=== PATIENT | female | born 1950 | race Caucasian/White ===

== ENCOUNTER 2016-10-12 22:53 | Emergency (ER) | payer BC ==
[~2016-10-12] VITALS: Ht 160 cm; Wt 86.0 kg
[~2016-10-12 22:53] MED LIST: ALLOPURINOL100 MG PO; ASPIRIN EC81 MG PO; BIOTIN MAXI10000 MCG PO; CALCIUM600 M1 PO; CIPROFLOXACN500 MG PO; D3 MAXIMUM5000 UNI1 PO; FLONASE NASAL50 MCG; GABAPENTIN100 MG PO; ISOSORB MONO30 MG PO; JANUVIA100 MG PO; LANTUS100 MG/ML SC; LISINOPRIL2.5 MG PO; METFORMIN500 MG PO; METOPROLOL50 M1 PO; MULTI FOR HER 50+ PO; MULTIVITAMI1 PO; NITROGLYCER0.4 MG SL; PLAVIX75 MG PO; PRAVASTATIN20 MG PO; PRENATAL1 TA1 PO; PRILOSEC20 MG PO; SPIRIVA IN; TORADOL PO; ZOFRAN4 MG/TAB PO
[2016-10-13 01:01] LABS: HEMOGLOBIN 10.9 g/dl (12.0-16.0); IMMATURE GRANULOCYTES 0.2 % (0.0-1.0); MEAN CELL VOLUME 88.5 fL CALC (80.0-100.0); MEAN CORPUSCULAR HGB 29.2 pG CALC (26.0-32.0); NEUT# 5.09 thou/uL (2.00-7.15); RED BLOOD COUNT 3.73 mill/uL (4.20-5.60); RED CELL DISTRI WIDTH 14.3 % (11.5-15.5)
[2016-10-13 01:21] LABS: URINE BILIRUBIN - DIPSTICK NEGATIVE (NEGATIVE); URINE BLOOD DIPSTICK MODERATE (NEGATIVE); URINE CLARITY SLIGHT CLOUDY; URINE COLOR YELLOW; URINE GLUCOSE - DIPSTICK 250 mg/dL (NEGATIVE); URINE KETONE NEGATIVE (NEGATIVE); URINE PROTEIN - DIPSTICK NEGATIVE (NEG-TRACE); URINE UROBILINOGEN - DIPSTICK 0.2 E.U./dL (0.2)
[2016-10-13 01:30] LABS: ALBUMIN 3.7 g/dL (3.2-5.0); BILIRUBIN, TOTAL 0.3 mg/dL (0.0-1.4); CALCIUM 9.2 mg/dL (8.4-10.2); CREATININE 1.2 mg/dL (0.5-1.0); TOTAL PROTEIN 6.6 g/dL (6.3-8.2)
[2016-10-13 01:32] LABS: URINE LEUK ESTERASE SMALL (NEGATIVE); URINE NITRITE - DIPSTICK POSITIVE (Negative)
[2016-10-13 01:42] LABS: URINE RBC 50-100 RBC/hpf (0-5)
[2016-10-13 01:43] LABS: POTASSIUM 5.3 mmol/l (3.5-5.1); URINE BACTERIA MODERATE hpf
[2016-10-13] MEDS ORDERED: ULTRAM50 M1 PO (03:21)
[2016-10-13] MEDS ORDERED: CIPROFLOXACN500 MG PO (03:21)
[2016-10-13 03:44] VITALS: BP 154/70
== END 2016-10-13 03:40 | disposition home or self-care (01) | DRG 694 ==
LOC: ED 22:53
PROVIDERS: Emergency Medicine
DX: N20.0 Calculus of kidney (principal); I10 Essential (primary) hypertension; N39.0 Urinary tract infection, site not specified; I25.10 Atherosclerotic heart disease of native coronary artery without angina pectoris; E11.9 Type 2 diabetes mellitus without complications; M81.0 Age-related osteoporosis without current pathological fracture; Z98.84 Bariatric surgery status

== ENCOUNTER 2016-10-28 22:24 | Observation (INO) | payer BC ==
[~2016-10-28] VITALS: Ht 160 cm; Wt 84.0 kg
[~2016-10-28 22:24] MED LIST changes: +ULTRAM50 M1 PO
[2016-10-28 23:53] LABS: HEMATOCRIT 33.6 % (37.0-47.0); HEMOGLOBIN 10.8 g/dl (12.0-16.0); IMMATURE GRANULOCYTES 0.3 % (0.0-1.0); MEAN CELL VOLUME 90.1 fL CALC (80.0-100.0); MEAN CORPUSCULAR HGB CONC 32.1 g/L CALC (32.0-36.0); NEUT# 4.7 thou/uL (2.00-7.15); RED BLOOD COUNT 3.73 mill/uL (4.20-5.60)
[2016-10-28 23:56] LABS: URINE BILIRUBIN - DIPSTICK NEGATIVE (NEGATIVE); URINE BLOOD DIPSTICK NEGATIVE (NEGATIVE); URINE CLARITY CLEAR; URINE COLOR YELLOW; URINE GLUCOSE - DIPSTICK 500 mg/dL (NEGATIVE); URINE KETONE NEGATIVE (NEGATIVE); URINE NITRITE - DIPSTICK NEGATIVE (Negative); URINE PH 5.5 (4.5-8.0); URINE PROTEIN - DIPSTICK NEGATIVE (NEG-TRACE); URINE SPECIFIC GRAVITY 1.015; URINE UROBILINOGEN - DIPSTICK 0.2 E.U./dL (0.2)
[2016-10-28 23:58] LABS: URINE LEUK ESTERASE SMALL (NEGATIVE)
[2016-10-29] LABS: BARBITURATES NEGATIVE (NEGATIVE); COCAINE NEGATIVE (NEGATIVE); METHADONE NEGATIVE (NEGATIVE); OXCYCODONE NEGATIVE (NEGATIVE); TETRAHYDROCANNABIONOL NEGATIVE (NEGATIVE); TRICYLIC ANTIDEPRESSANTS NEGATIVE (NEGATIVE)
[2016-10-29 00:07] LABS: ALBUMIN 3.6 g/dL (3.2-5.0); ALKALINE PHOSPHATASE 85 u/l (38-126); ANION GAP 16 (6-22 (CALC)); BILIRUBIN, TOTAL 0.3 mg/dL (0.0-1.4); BUN 32 mg/dL (8-23); BUN/CREATININE RATIO 27 (12-20 (CALC)); CALCIUM 9.7 mg/dL (8.4-10.2); CARBON DIOXIDE 25 mmol/l (22-30); CHLORIDE 104 mmol/l (95-108); CREATININE 1.2 mg/dL (0.5-1.0); GFR 45 ML/MIN (>=60 (CALC)); GFR FOR AFR.AMER. 55 ML/MIN (>=60 (CALC)); GLUCOSE 169 mg/dL (82-115); POTASSIUM 4.7 mmol/l (3.5-5.1); SGOT/AST 25 u/l (9-36); SGPT/ALT 39 u/l (11-66); SODIUM 140 mmol/l (137-146); TOTAL PROTEIN 6.4 g/dL (6.3-8.2)
[2016-10-29 00:09] LABS: INTERNATIONAL NORMALIZED RATIO 0.9 RATIO (0.7-1.3); URINE BACTERIA RARE hpf; URINE RBC 0-2 RBC/hpf (0-5); URINE SQUAMOUS EPITHELIAL CELL FEW EPI/hpf (0-FEW)
[2016-10-29 00:17] LABS: MYOGLOBIN 20 ng/mL (0 - 62)
[2016-10-29 04:40] VITALS: BP 151/69
[2016-10-29 10:58] VITALS: BP 114/52
[2016-10-29 16:21] VITALS: BP 115/69
[2016-10-29] MEDS ORDERED: LOPRESSOR 550 MG/TAB PO (16:49)
== END 2016-10-29 18:30 | disposition home or self-care (01) | DRG 313 ==
LOC: ENPENDDIS → ED 22:24 → ED-I 22:53 → ED 10-29 02:23 → MS2 10-29 02:24
PROVIDERS: Emergency Medicine; ADMIT Internal Medicine; ATTEND Internal Medicine
DX: R07.89 Other chest pain (principal); I25.10 Atherosclerotic heart disease of native coronary artery without angina pectoris; I11.9 Hypertensive heart disease without heart failure; E11.65 Type 2 diabetes mellitus with hyperglycemia; R53.83 Other fatigue; R55 Syncope and collapse; E78.5 Hyperlipidemia, unspecified; M19.90 Unspecified osteoarthritis, unspecified site; D64.9 Anemia, unspecified; M10.9 Gout, unspecified; Z85.3 Personal history of malignant neoplasm of breast; Z85.828 Personal history of other malignant neoplasm of skin; Z98.84 Bariatric surgery status; Z87.891 Personal history of nicotine dependence; Z95.5 Presence of coronary angioplasty implant and graft; Z79.4 Long term (current) use of insulin
CPT/HCPCS: G0378; J1335

== ENCOUNTER 2017-05-22 17:35 | Observation (INO) | payer BC ==
[~2017-05-22] VITALS: Ht 160 cm; Wt 89.8 kg
[~2017-05-22 17:35] MED LIST changes: +LOPRESSOR 550 MG/TAB PO
--- NOTE | 2017-05-22 17:35 | NUR ---
PT TO ROOM FOR TREATMENT
[2017-05-22] MEDS ORDERED: VICTOZA18 MG/3 ML SC (18:13)
[2017-05-22 18:16] LABS: HEMATOCRIT 30.1 % (37.0-47.0); HEMOGLOBIN 9.6 g/dl (12.0-16.0); IMMATURE GRANULOCYTES 0.3 % (0.0-1.0); MEAN CELL VOLUME 94.1 fL CALC (80.0-100.0); MEAN CORPUSCULAR HGB CONC 31.9 g/L CALC (32.0-36.0); NEUT# 5.08 thou/uL (2.00-7.15); RED BLOOD COUNT 3.2 mill/uL (4.20-5.60)
[2017-05-22] MEDS ORDERED: VITAMIN D-32000 UNI1 PO (18:17)
[2017-05-22] MEDS ORDERED: VITAMIN B-12500 MCG PO (18:18)
[2017-05-22] MEDS ORDERED: LEXIVA700 MG PO (18:20)
[2017-05-22] MEDS ORDERED: LEVOTHYROXIN50 MCG PO (18:23)
[2017-05-22 18:41] LABS: ALBUMIN 3.2 g/dL (3.2-5.0); ALKALINE PHOSPHATASE 69 u/l (38-126); ANION GAP 12 (6-22 (CALC)); BILIRUBIN, TOTAL 0.4 mg/dL (0.0-1.4); BUN 28 mg/dL (8-23); BUN/CREATININE RATIO 23 (12-20 (CALC)); CALCIUM 8.7 mg/dL (8.4-10.2); CARBON DIOXIDE 23 mmol/l (22-30); CHLORIDE 109 mmol/l (95-108); CREATININE 1.2 mg/dL (0.5-1.0); GFR 45 ML/MIN (>=60 (CALC)); GFR FOR AFR.AMER. 55 ML/MIN (>=60 (CALC)); GLUCOSE 245 mg/dL (82-115); POTASSIUM 4.5 mmol/l (3.5-5.1); SGOT/AST 38 u/l (9-36); SGPT/ALT 54 u/l (11-66); SODIUM 140 mmol/l (137-146); TOTAL PROTEIN 5.6 g/dL (6.3-8.2)
[2017-05-22 18:53] LABS: MYOGLOBIN 20 ng/mL (0 - 62)
--- NOTE | 2017-05-22 19:39 | NUR ---
PT AND AWARE OF PENDING ADMISSION. NO FURTHER EPISODES OF CHEST PAIN. PT UPDATED ON KNOWN RESULTS.
--- NOTE | 2017-05-22 19:45 | NUR ---
PT TAKEN TO ROOM 291 WITHOUT INCIDENT, REPORT WAS TO KENNY TAO.
[2017-05-22 19:55] VITALS: BP 134/72
--- NOTE | 2017-05-22 19:55 | NUR ---
PT TO ROOM 291 VIA STRETCHER ACCOMPANIED BY ER STAFF.
--- NOTE | 2017-05-22 20:15 | NUR ---
PT IS ALERT AND ORIENTED X3. PERRLA. LUNGS ARE CLEAR. RESP ARE EVEN AND UNLABORED. TELE IN PLACE. HR REGULAR. PULSES PALPABLE THROUGHOUT. NO EDEMA NOTED. PT DENIES CHEST PAIN AT THIS TIME. BS ACTIVE. PT REPORTS A NORMAL BM AT HOME EARLIER TODAY. ACCU CHECK 202. #22 RAC. SALINE LOCKED. NO REDNESS OR EDEMA NOTED AT SITE. WILL CONTINUE TO MONITOR
[2017-05-22 23:56] VITALS: BP 120/71
--- NOTE | 2017-05-23 00:38 | NUR ---
PT RESTING IN BED WITH EYES CLOSED. RESP ARE EVEN AND UNLABORED. NO CHANGE IN PT STATUS. WILL CONTINUE TO MONITOR
--- NOTE | 2017-05-23 01:03 | NUR ---
PT WITH COMPLAINTS OF A HEADACHE. NITRO PATCH REMOVED. WILL CONTINUE TO MONITOR
--- NOTE | 2017-05-23 04:18 | NUR ---
PT RESTING IN BED WITH EYES CLOSED. RESP ARE EVEN AND UNLATED. DENIES CP AT THIS TIME. WILL CONTINUE TO MONITOR
[2017-05-23 05:33] VITALS: BP 128/76
--- NOTE | 2017-05-23 07:35 | NUR ---
REPORT RECEIVED FROM NIGHT NURSE, PT.UPRIGHT IN BED W/LIGHTS AND TV ON. AT BS. DENIES ANY PAIN, DISCOMFORT OR DISTRES AT THIS TIME. CALL LIGHT W/IN REACH AND PT.HAS BEEN ENCOURAGED TO CALL IF ANY NEEDS ARISE
[2017-05-23 08:54] VITALS: BP 153/80
[2017-05-23 09:16] LABS: CHOLESTEROL HDL RATIO 2.4 (<4.4 (CALC)); MAGNESIUM 1.5 mg/dL (1.6-2.3)
[2017-05-23 11:00] VITALS: BP 144/80
[2017-05-23 15:57] VITALS: BP 110/64
--- NOTE | 2017-05-23 16:21 | NUR ---
PT.DISCHARGED OFF THE UNIT IN GOOD CONDITION, IV REMOVED INTACT/SITE APPEARS HEALTHY, GROCERY STOCK CLERK REMOVED. PT.SELF AMBULATED ACCOMPANIED BY .
== END 2017-05-23 16:21 | disposition home or self-care (01) | DRG 303 ==
LOC: ED 17:35 → ED-I 19:15 → ED 19:41 → MS2 19:42
PROVIDERS: Emergency Medicine; Nurse Practitioner Family; ADMIT Internal Medicine; ATTEND Internal Medicine
DX: I25.118 Atherosclerotic heart disease of native coronary artery with other forms of angina pectoris (principal); E11.65 Type 2 diabetes mellitus with hyperglycemia; I10 Essential (primary) hypertension; E78.5 Hyperlipidemia, unspecified; E83.42 Hypomagnesemia; M19.90 Unspecified osteoarthritis, unspecified site; Z95.5 Presence of coronary angioplasty implant and graft; Z98.84 Bariatric surgery status; Z85.3 Personal history of malignant neoplasm of breast; Z90.12 Acquired absence of left breast and nipple; Z87.442 Personal history of urinary calculi; Z87.891 Personal history of nicotine dependence; Z79.4 Long term (current) use of insulin
CPT/HCPCS: G0378

== ENCOUNTER 2017-06-11 00:30 | Inpatient (IN) | payer MEDICARE, OTHER ==
[~2017-06-11] VITALS: Ht 160 cm; Wt 86.0 kg
[~2017-06-11 00:30] MED LIST changes: -LANTUS100 MG/ML SC; +LANTUS100 UNIT/M SC; +LEVOTHYROXIN50 MCG PO; +LEXIVA700 MG PO; +VICTOZA18 MG/3 ML SC; +VITAMIN B-12500 MCG PO; +VITAMIN D-32000 UNI1 PO
[2017-06-11] MEDS ORDERED: VICTOZA18 MG/3 ML SC (00:54)
[2017-06-11] MEDS ORDERED: FOSAMAX PLUS PO (01:20)
[2017-06-11 01:22] LABS: HEMATOCRIT 32.9 % (37.0-47.0); HEMOGLOBIN 10.5 g/dl (12.0-16.0); IMMATURE GRANULOCYTES 0.2 % (0.0-1.0); MEAN CELL VOLUME 92.7 fL CALC (80.0-100.0); MEAN CORPUSCULAR HGB 29.6 pG CALC (26.0-32.0); MEAN CORPUSCULAR HGB CONC 31.9 g/L CALC (32.0-36.0); NEUT# 4.99 thou/uL (2.00-7.15); RED BLOOD COUNT 3.55 mill/uL (4.20-5.60); RED CELL DISTRI WIDTH 14.6 % (11.5-15.5)
[2017-06-11 01:35] LABS: ALBUMIN 3.7 g/dL (3.2-5.0); ALKALINE PHOSPHATASE 75 u/l (38-126); ANION GAP 15 (6-22 (CALC)); BILIRUBIN, TOTAL 0.3 mg/dL (0.0-1.4); BUN 19 mg/dL (8-23); BUN/CREATININE RATIO 17 (12-20 (CALC)); CALCIUM 9.5 mg/dL (8.4-10.2); CARBON DIOXIDE 23 mmol/l (22-30); CHLORIDE 111 mmol/l (95-108); CREATININE 1.2 mg/dL (0.5-1.0); GFR 45 ML/MIN (>=60 (CALC)); GFR FOR AFR.AMER. 55 ML/MIN (>=60 (CALC)); GLUCOSE 129 mg/dL (82-115); POTASSIUM 5.1 mmol/l (3.5-5.1); SGOT/AST 31 u/l (9-36); SGPT/ALT 47 u/l (11-66); SODIUM 144 mmol/l (137-146); TOTAL PROTEIN 6.1 g/dL (6.3-8.2)
[2017-06-11 01:36] LABS: ACT PARTIAL THROMBO TIME 24.3 SECONDS (20.0-32.5); INTERNATIONAL NORMALIZED RATIO 0.9 RATIO (0.7-1.3)
[2017-06-11 01:47] LABS: MYOGLOBIN 23 ng/mL (0 - 62)
[2017-06-11 03:00] VITALS: BP 156/86
[2017-06-11 07:38] VITALS: BP 147/74
[2017-06-11 11:27] VITALS: BP 105/60
[2017-06-11 15:09] VITALS: BP 141/87
[2017-06-11 19:10] VITALS: BP 126/74
[2017-06-11 23:39] VITALS: BP 146/74
== END 2017-06-12 00:30 | disposition short-term general hospital (02) | DRG 303 ==
LOC: ED 00:30 → ED-I 02:00 → ED 02:16 → MS2 02:17
PROVIDERS: Emergency Medicine; ADMIT Internal Medicine; ATTEND Internal Medicine
DX: I25.110 Atherosclerotic heart disease of native coronary artery with unstable angina pectoris (principal); E11.22 Type 2 diabetes mellitus with diabetic chronic kidney disease; I13.10 Hypertensive heart and chronic kidney disease without heart failure, with stage 1 through stage 4 chronic kidney disease, or unspecified chronic kidney disease; E11.65 Type 2 diabetes mellitus with hyperglycemia; N18.3 Chronic kidney disease, stage 3 (moderate); E78.5 Hyperlipidemia, unspecified; M10.9 Gout, unspecified; G47.33 Obstructive sleep apnea (adult) (pediatric); H91.90 Unspecified hearing loss, unspecified ear; M15.9 Polyosteoarthritis, unspecified; D63.1 Anemia in chronic kidney disease; E03.9 Hypothyroidism, unspecified; Z79.84 Long term (current) use of oral hypoglycemic drugs; Z85.3 Personal history of malignant neoplasm of breast; Z98.84 Bariatric surgery status; Z95.5 Presence of coronary angioplasty implant and graft; Z68.33 Body mass index [BMI] 33.0-33.9, adult; Z87.891 Personal history of nicotine dependence

== ENCOUNTER 2017-09-22 17:01 | Inpatient (IN) | payer MEDICARE, OTHER ==
[~2017-09-22] VITALS: Ht 160 cm; Wt 88.0 kg
[~2017-09-22 17:01] MED LIST changes: +CALCI PO; +CINNAMON500 M1 PO; +CIPROFLOXACIN250 MG PO; +FOSAMAX PLUS PO; +MAG PO; +MIRALAX3350 NF PO; +PROTONIX40 M2 PO; +[UNRECOGNIZED DRUG - OTHER] PO
[2017-09-22 17:54] LABS: HEMATOCRIT 35.1 % (37.0-47.0); HEMOGLOBIN 11.9 g/dl (12.0-16.0); IMMATURE GRANULOCYTES 0.4 % (0.0-1.0); MEAN CELL VOLUME 90.7 fL CALC (80.0-100.0); MEAN CORPUSCULAR HGB 30.7 pG CALC (26.0-32.0); MEAN CORPUSCULAR HGB CONC 33.9 g/L CALC (32.0-36.0); NEUT# 7.03 thou/uL (2.00-7.15); RED BLOOD COUNT 3.87 mill/uL (4.20-5.60); RED CELL DISTRI WIDTH 14.3 % (11.5-15.5)
[2017-09-22 17:56] LABS: URINE BILIRUBIN - DIPSTICK NEGATIVE (NEGATIVE); URINE BLOOD DIPSTICK NEGATIVE (NEGATIVE); URINE CLARITY CLEAR; URINE COLOR YELLOW; URINE GLUCOSE - DIPSTICK >=1000 mg/dL (NEGATIVE); URINE KETONE NEGATIVE (NEGATIVE); URINE LEUK ESTERASE NEGATIVE (NEGATIVE); URINE NITRITE - DIPSTICK NEGATIVE (Negative); URINE PROTEIN - DIPSTICK NEGATIVE (NEG-TRACE); URINE UROBILINOGEN - DIPSTICK 0.2 E.U./dL (0.2)
[2017-09-22 18:06] LABS: ALBUMIN 3.4 g/dL (3.2-5.0); BILIRUBIN, TOTAL 0.7 mg/dL (0.0-1.4); CREATININE 1.4 mg/dL (0.5-1.0); TOTAL PROTEIN 5.8 g/dL (6.3-8.2)
[2017-09-22 18:15] LABS: POTASSIUM 5.8 mmol/l (3.5-5.1)
[2017-09-22 19:38] VITALS: BP 144/77
[2017-09-22 22:03] LABS: CALCULATED LDLCHOLESTEROL 72 mg/dL (62-129 (CALC)); CHOLESTEROL HDL RATIO 2.3 (<4.4 (CALC)); HDL CHOLESTEROL 77 mg/dL (>=40); TOTAL CHOLESTEROL 176 mg/dl (0-199); TOTAL TRIGLYCERIDES 139 mg/dl (30-149); VLDL CHOLESTROL 28 mg/dl (1-41 (CALC))
[2017-09-22 22:33] LABS: TSH, 3RD GENERATION < 0.02 uIU/mL (0.47 - 4.68)
[2017-09-23 00:51] VITALS: BP 114/61
[2017-09-23 04:32] VITALS: BP 101/52
[2017-09-23 04:48] LABS: HEMATOCRIT 31.5 % (37.0-47.0); HEMOGLOBIN 10.3 g/dl (12.0-16.0); IMMATURE GRANULOCYTES 0.3 % (0.0-1.0); MEAN CELL VOLUME 92.1 fL CALC (80.0-100.0); MEAN CORPUSCULAR HGB 30.1 pG CALC (26.0-32.0); MEAN CORPUSCULAR HGB CONC 32.7 g/L CALC (32.0-36.0); NEUT# 4.5 thou/uL (2.00-7.15); RED BLOOD COUNT 3.42 mill/uL (4.20-5.60); RED CELL DISTRI WIDTH 14.5 % (11.5-15.5)
[2017-09-23 06:21] LABS: BILIRUBIN, TOTAL 0.4 mg/dL (0.0-1.4); CREATININE 1.4 mg/dL (0.5-1.0); TOTAL PROTEIN 4.8 g/dL (6.3-8.2)
[2017-09-23 06:30] LABS: ALBUMIN 2.7 g/dL (3.2-5.0); POTASSIUM 4.4 mmol/l (3.5-5.1)
[2017-09-23 08:12] VITALS: BP 99/58
[2017-09-23 10:00] VITALS: BP 110/62
[2017-09-23 15:15] VITALS: BP 95/55
[2017-09-23 19:15] VITALS: BP 108/60
[2017-09-24 05:05] LABS: HEMATOCRIT 30.7 % (37.0-47.0); IMMATURE GRANULOCYTES 0.5 % (0.0-1.0); MEAN CELL VOLUME 92.2 fL CALC (80.0-100.0); MEAN CORPUSCULAR HGB CONC 32.6 g/L CALC (32.0-36.0); NEUT# 3.68 thou/uL (2.00-7.15); RED BLOOD COUNT 3.33 mill/uL (4.20-5.60); RED CELL DISTRI WIDTH 14.6 % (11.5-15.5)
[2017-09-24 05:11] LABS: ALBUMIN 2.7 g/dL (3.2-5.0); BILIRUBIN, TOTAL 0.4 mg/dL (0.0-1.4); CREATININE 1.2 mg/dL (0.5-1.0); POTASSIUM 4.4 mmol/l (3.5-5.1); TOTAL PROTEIN 4.9 g/dL (6.3-8.2)
[2017-09-24 05:16] VITALS: BP 123/71
[2017-09-24 07:39] VITALS: BP 112/48
[2017-09-24 08:45] VITALS: BP 112/48
== END 2017-09-24 09:39 | disposition home or self-care (01) | DRG 639 ==
LOC: ED 17:01 → ED-I 18:12 → ED 18:23 → MS2 18:24
PROVIDERS: Emergency Medicine; ADMIT Internal Medicine Geriatric Medicine; ATTEND Internal Medicine Geriatric Medicine
DX: E11.65 Type 2 diabetes mellitus with hyperglycemia (principal); E11.22 Type 2 diabetes mellitus with diabetic chronic kidney disease; E03.9 Hypothyroidism, unspecified; I25.10 Atherosclerotic heart disease of native coronary artery without angina pectoris; B37.9 Candidiasis, unspecified; I12.9 Hypertensive chronic kidney disease with stage 1 through stage 4 chronic kidney disease, or unspecified chronic kidney disease; N18.9 Chronic kidney disease, unspecified; E78.5 Hyperlipidemia, unspecified; K27.9 Peptic ulcer, site unspecified, unspecified as acute or chronic, without hemorrhage or perforation; F41.9 Anxiety disorder, unspecified; M10.9 Gout, unspecified; L53.9 Erythematous condition, unspecified; Z95.1 Presence of aortocoronary bypass graft; Z87.440 Personal history of urinary (tract) infections

== ENCOUNTER 2017-12-08 08:49 | Emergency (ER) | payer MEDICARE, OTHER ==
[~2017-12-08] VITALS: Ht 160 cm; Wt 100.0 kg
[~2017-12-08 08:49] MED LIST changes: +METOPROL TAR25 M1 PO
[2017-12-08] MEDS ORDERED: NOVOLIN 70/30 SC ×2 (09:32→09:33)
[2017-12-08 09:35] LABS: HEMATOCRIT 35.6 % (37.0-47.0); HEMOGLOBIN 11.2 g/dl (12.0-16.0); IMMATURE GRANULOCYTES 0.4 % (0.0-1.0); MEAN CELL VOLUME 95.4 fL CALC (80.0-100.0); MEAN CORPUSCULAR HGB CONC 31.5 g/L CALC (32.0-36.0); NEUT# 8.55 thou/uL (2.00-7.15); RED BLOOD COUNT 3.73 mill/uL (4.20-5.60); RED CELL DISTRI WIDTH 13.8 % (11.5-15.5); URINE BILIRUBIN - DIPSTICK NEGATIVE (NEGATIVE); URINE BLOOD DIPSTICK MODERATE (NEGATIVE); URINE CLARITY CLOUDY; URINE COLOR YELLOW; URINE GLUCOSE - DIPSTICK NEGATIVE (NEGATIVE); URINE KETONE NEGATIVE (NEGATIVE); URINE LEUK ESTERASE TRACE (NEGATIVE); URINE NITRITE - DIPSTICK POSITIVE (Negative); URINE PH 5.5 (4.5-8.0); URINE PROTEIN - DIPSTICK 100 mg/dL (NEG-TRACE); URINE SPECIFIC GRAVITY 1.025; URINE UROBILINOGEN - DIPSTICK 0.2 E.U./dL (0.2)
[2017-12-08 09:36] LABS: URINE BACTERIA MODERATE hpf; URINE EPITHELIAL CELLS MODERATE EPI/hpf (0-FEW)
[2017-12-08] MEDS ORDERED: CALCIUM600 M1 PO (09:39)
[2017-12-08 09:46] LABS: ALBUMIN 3.6 g/dL (3.2-5.0); BILIRUBIN, TOTAL 0.6 mg/dL (0.0-1.4); CREATININE 1.2 mg/dL (0.5-1.0); POTASSIUM 4.8 mmol/l (3.5-5.1); TOTAL PROTEIN 6.3 g/dL (6.3-8.2)
[2017-12-08] MEDS ORDERED: ONDANSETRON4 MG PO (10:44)
[2017-12-08] MEDS ORDERED: HYDROCO/APAP1 TA9 PO (10:44)
[2017-12-08] MEDS ORDERED: CEPHALEXIN500 M1 PO (10:44)
[2017-12-08] MEDS ORDERED: TAMSULOSIN0.4 MG PO (10:44)
[2017-12-08] MEDS ORDERED: MOTRIN400 MG PO (10:44)
[2017-12-08 11:14] VITALS: BP 111/56
== END 2017-12-08 11:14 | disposition home or self-care (01) ==
LOC: ED 08:49
PROVIDERS: Family Medicine
DX: N20.1 Calculus of ureter (principal); M19.90 Unspecified osteoarthritis, unspecified site; I25.10 Atherosclerotic heart disease of native coronary artery without angina pectoris; I10 Essential (primary) hypertension; E11.9 Type 2 diabetes mellitus without complications; Z95.5 Presence of coronary angioplasty implant and graft; Z87.442 Personal history of urinary calculi; Z98.84 Bariatric surgery status; B96.89 Other specified bacterial agents as the cause of diseases classified elsewhere

== ENCOUNTER 2017-12-10 13:52 | Observation (INO) | payer MEDICARE, OTHER ==
[~2017-12-10] VITALS: Ht 160 cm; Wt 89.8 kg
[~2017-12-10 13:52] MED LIST changes: +CEPHALEXIN500 M1 PO; +HYDROCO/APAP1 TA9 PO; +MOTRIN400 MG PO; +NOVOLIN 70/30 SC; +ONDANSETRON4 MG PO; +TAMSULOSIN0.4 MG PO
[2017-12-10 14:10] VITALS: BP 111/62
[2017-12-10 14:24] LABS: HEMATOCRIT 34.8 % (37.0-47.0); HEMOGLOBIN 10.9 g/dl (12.0-16.0); IMMATURE GRANULOCYTES 0.2 % (0.0-1.0); MEAN CELL VOLUME 95.9 fL CALC (80.0-100.0); MEAN CORPUSCULAR HGB CONC 31.3 g/L CALC (32.0-36.0); NEUT# 6.04 thou/uL (2.00-7.15); RED BLOOD COUNT 3.63 mill/uL (4.20-5.60); RED CELL DISTRI WIDTH 13.7 % (11.5-15.5)
[2017-12-10 14:44] LABS: CREATININE 1.3 mg/dL (0.5-1.0)
[2017-12-10 15:29] VITALS: BP 94/52
--- NOTE | 2017-12-10 16:06 | NUR ---
PT ARRIVED ON UNIT VIA W/C @ 1410, SETTLED IN BED, ORIENTED TO ROOM AND CALL BUTLER, C/O MILD PAIN TO LEFT ABD. C/O OF BEING SHAKY AT THIS TIME (1611), BLOOD GLUCOSE MEASURED = 61, OJ AND SNACK GIVEN, WILL CONTINUE TO MONITOR, CALL BUTLER IN REACH.
[2017-12-10 18:10] LABS: URINE BILIRUBIN - DIPSTICK NEGATIVE (NEGATIVE); URINE BLOOD DIPSTICK NEGATIVE (NEGATIVE); URINE COLOR YELLOW; URINE GLUCOSE - DIPSTICK NEGATIVE (NEGATIVE); URINE KETONE NEGATIVE (NEGATIVE); URINE LEUK ESTERASE NEGATIVE (NEGATIVE); URINE NITRITE - DIPSTICK NEGATIVE (Negative); URINE PH 5.5 (4.5-8.0); URINE PROTEIN - DIPSTICK NEGATIVE (NEG-TRACE); URINE UROBILINOGEN - DIPSTICK 0.2 E.U./dL (0.2)
--- NOTE | 2017-12-10 18:31 | NUR ---
DRY HEAVING AT THIS TIME AND STATES SHE FEELS NAUSEATED, ANTIEMETIC MED GIVEN WILL CONTINUE TO MONITOR.
[2017-12-10 19:11] LABS: URINE CLARITY CLEAR
[2017-12-10 19:20] VITALS: BP 113/70
--- NOTE | 2017-12-10 20:08 | NUR ---
PT.ASSESSED AND POC DISCUSSED. STRAINER IN RESTROOM FOR URINE TO BE STRAINED. PT.REPORTS HAVING SMALL AMOUNTS OF DIAHRREA AT THIS TIME. SHE REPORTS OF STRESS INCONTINENCE OF URINE AND REQUESTED PADS FOR BOTH/PROVIDED. DENIES ANY NAUSEA OR PAIN AT THIS TIME. ABD. HYPO BOWEL SOUNDS SOFT NON-TENDER W/SLIGHT TENDERNESS IN LOWER RIGHT QUAD., LUNG SOUNDS ARE CLEAR, NEURO'S AND SKIN INTACT. NO EDEMA NOTED AT THIS TIME. CALL LIGHT AT BEDSIDE AND PT.ENCOURAGED TO CALL IF ANY NEEDS ARISE.
[2017-12-11] VITALS (10 sets, daily range): BP systolic 116–158; BP diastolic 65–86
--- NOTE | 2017-12-11 00:36 | NUR ---
PT.APPEARED TO BE SLEEPING WE ENTERED THE ROOM, V/S ASSESSED, PT.DENIES ANY NEEDS AT THIS TIME, CALL LIGHT IS W/IN REACH AND PT.ENCOURAGED TO CALL.
--- NOTE | 2017-12-11 02:52 | NUR ---
IV FLUIDS REPLENISHED, PT.IS IN BED WATCHING TV W/LIGHTS ON. NO S/S OF DISTRESS, PT.DENIES ANY NEEDS AT THIS TIME. PT.HAS BEEN NPO SINCE MIDNIGHT IN PREPERATION FOR OR TOMORROW. CALL LIGHT IS AT BEDSIDE AND PT.ENCOURAGED TO CALL IF ANY NEEDS ARISE.
--- NOTE | 2017-12-11 04:02 | NUR ---
PT.SLEEPING UPON ENTERING ROOM. V/S ASSESSED AND IV PUMP CLEARED. PT.DENIES ANY NEEDS AT THIS TIME, CALL LIGHT AT BEDSIDE. PT.ENCOURAGED TO CALL IF ANY NEEDS ARISE.
[2017-12-11 04:57] LABS: BILIRUBIN, TOTAL 0.4 mg/dL (0.0-1.4); CREATININE 1.1 mg/dL (0.5-1.0); POTASSIUM 4.9 mmol/l (3.5-5.1); TOTAL PROTEIN 5.1 g/dL (6.3-8.2)
[2017-12-11 05:03] LABS: ALBUMIN 2.7 g/dL (3.2-5.0)
[2017-12-11 05:30] LABS: HEMATOCRIT 31.1 % (37.0-47.0); HEMOGLOBIN 9.8 g/dl (12.0-16.0); IMMATURE GRANULOCYTES 0.4 % (0.0-1.0); MEAN CELL VOLUME 95.1 fL CALC (80.0-100.0); MEAN CORPUSCULAR HGB CONC 31.5 g/L CALC (32.0-36.0); NEUT# 3.69 thou/uL (2.00-7.15); RED BLOOD COUNT 3.27 mill/uL (4.20-5.60); RED CELL DISTRI WIDTH 13.8 % (11.5-15.5)
--- NOTE | 2017-12-11 07:00 | NUR ---
SHIFT CHANGE REPORT FROM SAYRA PT AWAKE ALERT AND ORIENTED RESTING IN BED, STATES HER PAIN IS MILD TO LLQ, TELE MONITOR IN PLACE, CALL BUTLER IN REACH.
[2017-12-11] MEDS ORDERED: PRENATAL1 TA1 PO (10:28)
[2017-12-11] MEDS ORDERED: SLOW-MAG PO (10:30)
[2017-12-11] MEDS ORDERED: METFORMIN500 M2 PO (10:33)
--- NOTE | 2017-12-11 11:21 | NUR ---
PT ALER AND ORIENTED, AWARE OF PLANNED PROCEDURE. PRANEETH FROM OR RECEIVED PT NOW, TRANSFERRED HER FROM BED TO STRETCHER AFTER INFORMING HER OF PLANS AND LEFT UNIT WITH PT TO OR.
--- NOTE | 2017-12-11 15:23 | NUR ---
PT RETURNED TO UNIT @ 1400, REDSIDE REPORT GIVEN TO JEAN AND FROM JEAN TO [place] @ 1407, PT SITTING ON COMMODE AT THAT TIME MOANING/GROANING IN PAIN, C/O BURNING PAIN @ 10 TO LOWER ABD. URINATED 100 CC BLOODY URINE, ASSISTED TO BED. STRING SECURED WITH SS TO RIGHT GROIN AREA, COMING FROM VAGINAL AREA OR STAFF EXPLAIN IT IS ATTATCHED TO RENAL STENT AND MUST STAY IN PLACE UNTIL SEEN BY UROLOGIST ON SATURDAY. PAIN CONCERN ADDRESSED, VITAL SIGNS BENING MEASURED, CALL BUTLER IN REACH.
--- NOTE | 2017-12-11 16:10 | NUR ---
ASSISTED PT TO BS @ 1610 AND BACK TO BED AFTER URINATING 100ML BLOODY URINE.
--- NOTE | 2017-12-11 16:48 | NUR ---
C/O CHEST PAIN AT THIS TIME, RESPIRATORY THERAPIST CALLED TO PERFORM EKG, WILL CONTINUE TO MONITOR, CALL BUTLER IN REACH.
--- NOTE | 2017-12-11 20:11 | NUR ---
PT RESTING IN BED WATCHING TV. PT ASSISTED TO BSC, PT VOIDED 200CC OF DARK DANISHA URINE. PT ASSISTED BACK TO BED. STRING FROM OR SECURED TO RIGHT GROIN AREA. RESP EVEN AND UNLABORED. TELE IN PALCE. LUNGS CLEAR, DIMINISHED IN BASES. BROUGHT INCENTIVE SPIROMETER TO PT, EDUCATED PT ON USE. PT RETURNED DEMONSTRATION. ABD SOFT, ACTIVE BOWEL SOUNDS. PEDAL PULSES PALPATED BILAT. IV RAC PATENT; NO REDNESS OR EDEMA NOTED. SAFETY PREACUTIONS REINFORCED. FREQUENT ROUNDS MADE. CALL LIGHT WITHIN REACH.
--- NOTE | 2017-12-12 | NUR ---
PT SLEEPING WITH EYES CLOSED. RESP EVEN AND UNLABORED. NO DISCOMFORT NOTED. TELE IN PLACE. IV PATENT; NO REDNESS OR EDEMA. CALL LIGHT WITHIN REACH.
[2017-12-12 00:05] VITALS: BP 112/66
--- NOTE | 2017-12-12 04:03 | NUR ---
RESP EVEN AND UNLABORED. PT SLEEPING WITH EYES CLOSED. ASSESSMENT UNCHANGED. TELE ON. IV PATENT; NO REDNESS OR EDEMA NOTED. CALL LIGHT WITHIN REACH.
[2017-12-12 04:05] VITALS: BP 123/68
--- NOTE | 2017-12-12 07:10 | NUR ---
REPORT RECEIVED FROM ROLAN ARZATE;PT RESTING IN SEMI FOWLERS POSITION;INTRODUCED SELF TO PT AND POC DISCUSSED;PT DENIES ANY CURRENT PAIN OR NEEDS;RESPIRATIONS APPEAR EVEN AND UNLABORED ON 02 @ 2L VIA NC;ENCOURAGED PT TO CALL FOR ASSISTANCE IF NEEDED;FALL PRECAUTIONS IN PLACE WITH CALL LIGHT IN REACH;WILL CONTINUE TO MONITOR
--- NOTE | 2017-12-12 08:10 | NUR ---
PT AMBULATING HALLWAY WITH A STEADY GAIT ACCOMPANIED BY
[2017-12-12 08:29] VITALS: BP 159/85
--- NOTE | 2017-12-12 08:30 | NUR ---
PT OOB RESTING IN RECLINER WITH SPOUSE AT BEDSIDE;VS OBTAINED AND ASSESSMENT COMPLETED;RESPIRATIONS EVEN AND UNLABORED ON RA,SHALLOW;ABDOMEN DISTENDED/SOFT ON PALPATION AND ACTIVE IN ALL 4 QUADRANTS;WEAK PEDAL PULSES;#20G TO RAC FLUSHED AND PATENT,SITE APPEARS HEALTHY;PT AWARE OF PENDING PICC LINE ORDER;TELE MONITOR IN PLACE;PT DENIES ANY CURRENT PAIN OR DISCOMFORTS;PO FLUIDS ENCOURAGED;CALL LIGHT IN REACH;WILL CONTINUE TO MONITOR
--- NOTE | 2017-12-12 09:36 | NUR ---
PT TRANSFERRED TO XRAY AT THIS TIME VIA WC ACCOMPANIED BY STAFF MEMBER
[2017-12-12 11:08] VITALS: BP 152/75
--- NOTE | 2017-12-12 11:50 | NUR ---
PT OOB RESTING IN RECLINER WITH SPOUSE AT BEDSIDE;PT VERY EAGER FOR DISCHARGE;RESPIRATIONS APPEAR EVEN AND UNLABORED ON RA;TELE MONITOR IN PLACE;PT DENIES ANY CURRENT PAIN OR NEEDS;ENCOURAGED TO CALL FOR ASSISTANCE IF NEEDED;CALL LIGHT IN REACH;WILL CONTINUE TO MONITOR
--- NOTE | 2017-12-12 12:11 | NUR ---
NOTIFIED OF PT STATUS,AWAITING D/C ORDERS
--- NOTE | 2017-12-12 13:01 | NUR ---
ORDERS FAXED TO PHARMACY AND IV THERPAY AT THIS TIME
--- NOTE | 2017-12-12 13:14 | NUR ---
DISCHARGE DISCUSSED WITH PT AND SPOUSE;ALL INFORMATION GIVEN AT THIS TIME AND QUESTIONS ANSWERED;PT TO GO TO [facility] 12/13/17 @0930;PT DENIES ANY OTHER NEEDS;IV SITE REMOVED WITH CATHETER INTACT;WHEELCHAIR PROVIDED FOR D/C
--- NOTE | 2017-12-12 13:16 | NUR ---
Discharge instructions given. Patient verbalizes understanding of same. Discharged in stable condition via Wheelchair to Home with spouse. All belongings sent with pt.
[2017-12-13] MEDS ORDERED: ONDANSETRON4 MG PO (17:42)
[2017-12-13] MEDS ORDERED: HYDROCO/APAP1 TA9 PO (17:42)
== END 2017-12-12 13:15 | disposition home or self-care (01) ==
LOC: MS2 13:52
PROVIDERS: ADMIT Internal Medicine Geriatric Medicine; ATTEND Internal Medicine Geriatric Medicine
PROC: 0TC78ZZ Extirpation of Matter from Left Ureter, Via Natural or Artificial Opening Endoscopic (ICD-10-PCS; principal; 2017-12-11)
PROC: 0T778DZ Dilation of Left Ureter with Intraluminal Device, Via Natural or Artificial Opening Endoscopic (ICD-10-PCS; 2017-12-11)
PROC: BT1FZZZ Fluoroscopy of Left Kidney, Ureter and Bladder (ICD-10-PCS; 2017-12-11)
PROC: 05HB33Z Insertion of Infusion Device into Right Basilic Vein, Percutaneous Approach (ICD-10-PCS; 2017-12-12)
PROC: B51MZZA Fluoroscopy of Right Upper Extremity Veins, Guidance (ICD-10-PCS; 2017-12-12)
DX: N13.6 Pyonephrosis (principal); N17.9 Acute kidney failure, unspecified; I12.9 Hypertensive chronic kidney disease with stage 1 through stage 4 chronic kidney disease, or unspecified chronic kidney disease; E11.22 Type 2 diabetes mellitus with diabetic chronic kidney disease; N18.9 Chronic kidney disease, unspecified; I25.119 Atherosclerotic heart disease of native coronary artery with unspecified angina pectoris; E11.65 Type 2 diabetes mellitus with hyperglycemia; E11.42 Type 2 diabetes mellitus with diabetic polyneuropathy; M19.90 Unspecified osteoarthritis, unspecified site; K27.9 Peptic ulcer, site unspecified, unspecified as acute or chronic, without hemorrhage or perforation; K21.9 Gastro-esophageal reflux disease without esophagitis; I48.91 Unspecified atrial fibrillation; E78.5 Hyperlipidemia, unspecified; F41.9 Anxiety disorder, unspecified; F32.9 Major depressive disorder, single episode, unspecified; G89.29 Other chronic pain; M54.5 Low back pain; E03.9 Hypothyroidism, unspecified; M10.9 Gout, unspecified; Z85.3 Personal history of malignant neoplasm of breast; Z79.4 Long term (current) use of insulin; Z95.1 Presence of aortocoronary bypass graft; Z87.442 Personal history of urinary calculi; Z95.5 Presence of coronary angioplasty implant and graft; Z98.84 Bariatric surgery status; Z87.891 Personal history of nicotine dependence; Z79.02 Long term (current) use of antithrombotics/antiplatelets
CPT/HCPCS: J0692; Q9967

== ENCOUNTER 2017-12-14 16:46 | Emergency (ER) | payer MEDICARE, OTHER ==
[~2017-12-14] VITALS: Ht 160 cm; Wt 89.0 kg
[~2017-12-14 16:46] MED LIST changes: +METFORMIN500 M2 PO; +SLOW-MAG PO
[2017-12-14] MEDS ORDERED: PHENERGAN25 MG/TAB PO (18:23)
[2017-12-14] MEDS ORDERED: DILAUDID2 MG PO (18:23)
[2017-12-14 18:46] VITALS: BP 151/70
== END 2017-12-14 18:46 | disposition home or self-care (01) ==
LOC: ED 16:46
DX: N20.2 Calculus of kidney with calculus of ureter (principal); Z87.442 Personal history of urinary calculi; R11.0 Nausea; I10 Essential (primary) hypertension; E11.9 Type 2 diabetes mellitus without complications; Z79.4 Long term (current) use of insulin; R10.9 Unspecified abdominal pain
CPT/HCPCS: J0692

== ENCOUNTER 2017-12-20 18:02 | Inpatient (IN) | payer MEDICARE, OTHER ==
[~2017-12-20] VITALS: Ht 160 cm; Wt 89.0 kg
[~2017-12-20 18:02] MED LIST changes: +DILAUDID2 MG PO; +PHENERGAN25 MG/TAB PO
--- NOTE | 2017-12-20 18:10 | NUR ---
PT TO ROOM FOR EXAM
--- NOTE | 2017-12-20 18:18 | NUR ---
PT TO BATHROOM FOR UA SAMPLE THEN CHANGE INTO GOWN. @BEDSIDE.
--- NOTE | 2017-12-20 18:41 | NUR ---
UNABLE TO DRAW BLOOD OUT OF PICC LINE IN RIGHT UPPER ARM. PT STATES THEY HAVENT BEEN ABLE TO DRAW OUT BLOOD x2 DAYS. PICC LINE FLUSHES W/OUT DIFFICULTY. PT ENCOURAGED NOT TO USE SWEATERS & BLANKETS WHILE SHE HAS A FEVER. PT C/O MILD CRAMPING TO LOWER ABD & FEVER x2 WEEKS. RECENT SURGERY FOR KIDNEY STONES, PT STATES FILTER STILL IN PLACE. BREATHING IS EVEN/UNLABORED. PULSES STRONG/EVEN. ABD SOFT/TENDER.
[2017-12-20 19:18] LABS: HEMATOCRIT 30.8 % (37.0-47.0); HEMOGLOBIN 9.8 g/dl (12.0-16.0); IMMATURE GRANULOCYTES 1.1 % (0.0-1.0); MEAN CELL VOLUME 92.5 fL CALC (80.0-100.0); MEAN CORPUSCULAR HGB 29.4 pG CALC (26.0-32.0); MEAN CORPUSCULAR HGB CONC 31.8 g/L CALC (32.0-36.0); NEUT# 6.39 thou/uL (2.00-7.15); RED BLOOD COUNT 3.33 mill/uL (4.20-5.60)
--- NOTE | 2017-12-20 19:19 | NUR ---
PT STATES SHE "FEELS BETTER AND IS READY TO GO HOME".
[2017-12-20 19:20] LABS: URINE BILIRUBIN - DIPSTICK NEGATIVE (NEGATIVE); URINE BLOOD DIPSTICK LARGE (NEGATIVE); URINE COLOR YELLOW; URINE GLUCOSE - DIPSTICK 100 mg/dL (NEGATIVE); URINE KETONE NEGATIVE (NEGATIVE); URINE LEUK ESTERASE TRACE (Negative); URINE NITRITE - DIPSTICK NEGATIVE (Negative); URINE PROTEIN - DIPSTICK 100 mg/dL (NEG-TRACE); URINE UROBILINOGEN - DIPSTICK 0.2 E.U./dL (0.2)
[2017-12-20 19:30] LABS: ALBUMIN 3.2 g/dL (3.2-5.0); BILIRUBIN, TOTAL 0.5 mg/dL (0.0-1.4); CREATININE 1.3 mg/dL (0.5-1.0); TOTAL PROTEIN 6.2 g/dL (6.3-8.2)
[2017-12-20 19:52] LABS: URINE CLARITY TURBID
[2017-12-20 19:58] VITALS: BP 124/55
[2017-12-20 20:00] LABS: URINE RBC TNTC RBC/hpf (0-5); URINE SQUAMOUS EPITHELIAL CELL FEW EPI/hpf (0-FEW)
[2017-12-20 20:04] LABS: POTASSIUM 5.2 mmol/l (3.5-5.1)
--- NOTE | 2017-12-20 20:16 | NUR ---
IVF STARTED PER MD ORDER.
--- NOTE | 2017-12-20 20:23 | NUR ---
RECVING AISLINN LORA. SHE IS ON THE OTHER LINE.
--- NOTE | 2017-12-20 20:36 | NUR ---
Admission Note Report Given to: JUSTINE Transported by: Wheelchair X Stretcher Transported with: X Nurse Transporter X Patent IV O2 X Breaker Boss
--- NOTE | 2017-12-20 20:45 | NUR ---
PTS GIVEN TEST RESULTS SO HE CAN COMMUNICATED WITH PTS RN DAUGHTER ABOUT PTS STATUS. WHILE PREPARING PT FOR TRANSFER, SPOKE OF HIS MISTRUST OF HOSPITALS; STATING HOW HIS DAD IN A HOSPITAL. STATES HE NEEDS TO BE ACTIVELY INVOLVED IN PTS CARE "DRS MAKE MISTAKES ALL THE TIME". PT ALSO LEARY OF HOSPITAL HER BROTHER HAD A KNEE SURGERY THEN 1 YEAR LATER DUE TO INFECTION. STATES PT HAS PICKED UP A LOT OF INFECTIONS WHILE HOSPITALIZED INCLUDING ESBL. CONTINUALLY SPOKE POORLY OF THIS HOSPITAL, AND HOSPITALS/DOCTORS IN GENERAL. PT TRANSFERED TO [facility] IN STABLE CONDITION BY STRETCHER ON TELE.
--- NOTE | 2017-12-20 20:56 | NUR ---
PT ARRIVED TO UNIT AT 2044 VIA STRETCHER WITH ER STAFF AND . AMBULATED TO BED INDEPENDENLTY; ALERT AND ORIENTED. IV FLUIDS INFUSING UPON ARRIVAL AND TELE ON. DENIES PAIN CURRENTLY. RESPIRATIONS EVEN AND UNLABOED ON ROOM AIR; LUNGS CLEAR. ORIENTED TO ROOM AND CALL LIGHT SYSTEM. PLAN OF CARE DISCUSSED. PT ENCOURAGED TO VERBALIZE CONCERNS. STATES UNDERSTANDING. SAFETY MEASURES IN PLACE. CALL LIGHT WITHIN REACH.
--- NOTE | 2017-12-20 21:00 | NUR ---
MAGGIE ADVISED NOT TO USE PICC LINE BC IT NEEDS TO BE ADVANCED DURING ADMISSION REPORT.
--- NOTE | 2017-12-20 23:33 | NUR ---
PT ASLEEP AT THIS TIME WITH NO SIGNS OF DISTRESS. REPSIRATIONS EVEN AND UNLABORED ON ROOM AIR. IV FLUIDS INFUSING WITHOUT DIFFICULTY; IV SITE APPEARS HEALTHY. PT INDEPENDENT TO BATHROOM, HAS LEAKY URINE R/T CURRENT STENT IN PLACE. SAFETY MEASURES IN PLACE. CALL LIGHT WITHIN REACH.
[2017-12-21] VITALS: BP 144/81
--- NOTE | 2017-12-21 04:16 | NUR ---
PT ASLEEP AT THIS TIME WITH NO SIGNS OF DISTRESS. RESPIRATIONS EVEN AND UNLABROED ON ROOM AIR. ONE EPISODE OF INCONTINENCE IN THE BED THIS SHIFT. NO ACUTE CHANGES IN CONDITION THROUGHOUT THE NIGHT. SAFETY MEASURES IN PLACE. CALL LIGHT WITHIN REACH.
[2017-12-21 05:00] VITALS: BP 145/81
[2017-12-21 05:56] LABS: HEMATOCRIT 28.1 % (37.0-47.0); IMMATURE GRANULOCYTES 0.8 % (0.0-1.0); MEAN CELL VOLUME 92.1 fL CALC (80.0-100.0); MEAN CORPUSCULAR HGB 29.5 pG CALC (26.0-32.0); NEUT# 5.39 thou/uL (2.00-7.15); RED BLOOD COUNT 3.05 mill/uL (4.20-5.60); RED CELL DISTRI WIDTH 13.7 % (11.5-15.5)
[2017-12-21 06:04] LABS: CREATININE 1.1 mg/dL (0.5-1.0); POTASSIUM 4.5 mmol/l (3.5-5.1)
--- NOTE | 2017-12-21 07:05 | NUR ---
BEDSIDE REPORT RECEIVED BY BRENTON. PT IS RESTING IN BED WITH NO S/S OF DISTRESS NOTED. PT DENIES NEEDS AT THIS TIME. CALL LIGHT IN REACH.
[2017-12-21 07:42] VITALS: BP 163/82
--- NOTE | 2017-12-21 07:58 | NUR ---
PT WENT TO X-RAY VIA WHEELCHAIR BY AJ MURRIETA.
--- NOTE | 2017-12-21 08:07 | NUR ---
PT IS SITTING IN RECLINER. ASSESSMENT DONE TELE IN PLACE . RESPS EVEN AND UNLABORED. NS 75ML/HR INFUSING WELL. PT DENIES PAIN AT THIS TIME. SAFETY PRECAUTION REINFORCED AND CALL LIGHT IN REACH.
--- NOTE | 2017-12-21 09:10 | NUR ---
DR. TSE AT BEDSIDE TO ASSESS PT.
[2017-12-21 11:18] VITALS: BP 115/68
--- NOTE | 2017-12-21 12:00 | NUR ---
PT IS SITTING IN CHAIR EATING HER LUNCH WITH NO S/S OF DISTRESS NOTED. PT DENIES NEEDS AND IN ROOM. CALL LIGHT IN REACH.
[2017-12-21 15:03] VITALS: BP 122/72
--- NOTE | 2017-12-21 16:02 | NUR ---
PT IS RESTING ON HER RIGHT SIDE. PT STATED THAT SHE IS COLD CHECKED PT TEMP. 99.9. PT DENIES PAIN OR NEEDS AT THIS TIME. WILL CONTINUE TO MONITOR. CALL LIGHT IN REACH.
--- NOTE | 2017-12-21 17:09 | NUR ---
PT TEMP IS 100.3 MEDICATED PT WITH TYLENOL SEE EMAR. PROVIDE PO FLUIDS AND MADE ROOM COOL. PT DENIES ANY OTHER NEEDS AT THIS TIME. CALL LIGHT IN REACH.
--- NOTE | 2017-12-21 18:45 | NUR ---
RECEIVED CHANGE OF SHIFT REPORT FROM AISLINN RAMSEY. PT ALERT AND ORIENTED X 3. PT AMBULATED TO BATHROOM WITHOUT ASSISTANCE. NO VOICED COMPLAINTS. DENIES DISCOMFORT OR PAIN. NO APPARENT ACUTE DISTRESS NOTED. WILL CONTINUE TO MONITOR.
[2017-12-21 19:40] VITALS: BP 134/75
--- NOTE | 2017-12-22 | NUR ---
PT RESTING QUIETLY WITH EYES CLOSED AND APPEARS TO BE ASLEEP. NO APPARENT ACUTE DISTRESS NOTED. WILL CONTINUE TO MONITOR.
[2017-12-22 00:20] VITALS: BP 140/83
[2017-12-22 04:35] VITALS: BP 145/80
--- NOTE | 2017-12-22 05:00 | NUR ---
PT SLEPT WELL DURING THE NIGHT. NO APPARENT ACUTE CHANGES NOTED IN PT'S CONDITION.
[2017-12-22 05:19] LABS: HEMATOCRIT 28.1 % (37.0-47.0); HEMOGLOBIN 8.9 g/dl (12.0-16.0); IMMATURE GRANULOCYTES 0.9 % (0.0-1.0); MEAN CORPUSCULAR HGB 29.5 pG CALC (26.0-32.0); MEAN CORPUSCULAR HGB CONC 31.7 g/L CALC (32.0-36.0); NEUT# 6.55 thou/uL (2.00-7.15); RED BLOOD COUNT 3.02 mill/uL (4.20-5.60); RED CELL DISTRI WIDTH 13.8 % (11.5-15.5)
[2017-12-22 05:20] LABS: ALBUMIN 2.8 g/dL (3.2-5.0); BILIRUBIN, TOTAL 0.3 mg/dL (0.0-1.4); CREATININE 1.1 mg/dL (0.5-1.0); POTASSIUM 4.1 mmol/l (3.5-5.1); TOTAL PROTEIN 5.5 g/dL (6.3-8.2)
--- NOTE | 2017-12-22 07:03 | NUR ---
REPORT RECEIVED BY HANNA. PT IS SITTING IN RECLINER WITH NO S/S OF DISTRESS NOTED. PT DENIES NEEDS AT THIS TIME. CALL LIGHT IN REACH.
[2017-12-22 07:21] VITALS: BP 144/79
--- NOTE | 2017-12-22 08:00 | NUR ---
PT IS SITTING IN CHAIR. ASSESSMENT DONE TELE IN PLACE. RESPS EVEN AND UNLABORED. PT DENIES PAIN AT THIS TIME. NS 75ML/HR INFUSING WELL. SAFETY PRECAUTION REINFORCED AND CALL LIGHT IN REACH.
[2017-12-22 11:03] VITALS: BP 119/68
--- NOTE | 2017-12-22 12:00 | NUR ---
PT IS EATING HER LUNCH WITH NO S/S OF DISTRESS NOTED. PT DENIES NEEDS AT THIS TIME. CALL LIGHT IN REACH.
[2017-12-22 15:20] VITALS: BP 149/86
--- NOTE | 2017-12-22 16:00 | NUR ---
PT IS RESTING IN BED AND DENIES NEEDS AT THIS TIME. CALL LIGHT IN REACH.
--- NOTE | 2017-12-22 19:00 | NUR ---
RECEIVED CHANGE OF SHIFT REPORT FROM AISLINN RAMSEY. PT ALERT AND ORIENTED X 3 AND SITTING UP IN CHAIR. DENIES PAIN. NO APPARENT ACUTE DISTRESS NOTED. WILL CONTINUE TO MONITOR.
[2017-12-22 19:25] VITALS: BP 147/74
--- NOTE | 2017-12-23 | NUR ---
PT RESTING COMFORTABLY AT THIS TIME. RESP EVEN AND NONLABORED. NO APPARENT ACUTE DISTRESS NOTED. WILL CONTINUE TO MONITOR.
[2017-12-23 00:35] VITALS: BP 151/81
--- NOTE | 2017-12-23 05:00 | NUR ---
PT SLEPT WELL DURING THE NIGHT. NO APPARENT ACUTE CHANGES NOTED IN PT'S CONDITION.
[2017-12-23 05:10] VITALS: BP 146/82
[2017-12-23 05:18] LABS: HEMATOCRIT 29.2 % (37.0-47.0); HEMOGLOBIN 9.4 g/dl (12.0-16.0); IMMATURE GRANULOCYTES 0.5 % (0.0-1.0); MEAN CELL VOLUME 91.5 fL CALC (80.0-100.0); MEAN CORPUSCULAR HGB 29.5 pG CALC (26.0-32.0); MEAN CORPUSCULAR HGB CONC 32.2 g/L CALC (32.0-36.0); NEUT# 7.58 thou/uL (2.00-7.15); RED BLOOD COUNT 3.19 mill/uL (4.20-5.60); RED CELL DISTRI WIDTH 13.9 % (11.5-15.5)
[2017-12-23 05:36] LABS: CREATININE 1.1 mg/dL (0.5-1.0); POTASSIUM 4.1 mmol/l (3.5-5.1)
--- NOTE | 2017-12-23 07:18 | NUR ---
RECEIVED BEDSIDE REPORT FROM JOELLE TAO. SITTING IN BEDSIDE CHAIR, VISITOR AT BEDSIDE. RESPS EVEN AND UNLABORED ON ROOM AIR, TELE MONITOR IN PLACE. DENIES PAIN OR DISCOMFORT. PLAN OF CARE DISCUSSED. SAFTEY PRECAUTIONS REINFORCED. CALL LIGHT WITHIN REACH. ENCOURAGED PT TO CALL FOR ANY NEEDS.
[2017-12-23 07:59] VITALS: BP 140/65
--- NOTE | 2017-12-23 08:20 | NUR ---
DR TSE AT BEDSIDE, URETER STENT REMOVED BY DR TSE, PT TOLERATED WITHOUT DIFFICULTY, NEW ORDERS RECEIVED.
--- NOTE | 2017-12-23 09:00 | NUR ---
PICC site clean and dry. No edema, no redness. Cath removed with cm intact. Clear occulsive dressing with triple antibiotic applied to site. Patient/Family instructed to remove dressing on at 9 o'clock. Must remain intact for 24 hours. Verbalizes understanding. Patient tolerated procedure without complication.
[2017-12-23 09:19] VITALS: BP 140/65
--- NOTE | 2017-12-23 09:30 | NUR ---
IV site discontinued, cath intact. No edema , no redness, voices no discomfort.
--- NOTE | 2017-12-23 10:27 | NUR ---
Discharge instructions given. Patient verbalizes understanding of same. Discharged in stable condition via Wheelchair to Home with spouse. All belongings sent with pt.
== END 2017-12-23 10:28 | disposition home or self-care (01) | DRG 700 ==
LOC: ED 18:02 → ED-I 19:45 → ED 20:14 → MS2 20:15
PROVIDERS: ADMIT Internal Medicine Geriatric Medicine; ATTEND Internal Medicine Geriatric Medicine
PROC: 0TP9XDZ Removal of Intraluminal Device from Ureter, External Approach (ICD-10-PCS; principal; 2017-12-23)
DX: T83.84XA Pain due to genitourinary prosthetic devices, implants and grafts, initial encounter (principal); I12.9 Hypertensive chronic kidney disease with stage 1 through stage 4 chronic kidney disease, or unspecified chronic kidney disease; E11.22 Type 2 diabetes mellitus with diabetic chronic kidney disease; N18.9 Chronic kidney disease, unspecified; I25.10 Atherosclerotic heart disease of native coronary artery without angina pectoris; I48.91 Unspecified atrial fibrillation; E78.5 Hyperlipidemia, unspecified; K21.9 Gastro-esophageal reflux disease without esophagitis; K27.9 Peptic ulcer, site unspecified, unspecified as acute or chronic, without hemorrhage or perforation; E03.9 Hypothyroidism, unspecified; M10.9 Gout, unspecified; Y83.8 Other surgical procedures as the cause of abnormal reaction of the patient, or of later complication, without mention of misadventure at the time of the procedure; Z87.442 Personal history of urinary calculi; Z98.84 Bariatric surgery status; Z95.5 Presence of coronary angioplasty implant and graft; Z87.440 Personal history of urinary (tract) infections
CPT/HCPCS: J0692

== ENCOUNTER 2018-07-16 06:10 | Day surgery (SDC) | payer MEDICARE, OTHER ==
[~2018-07-16] VITALS: Ht 160 cm; Wt 90.7 kg
[~2018-07-16 06:10] MED LIST changes: +FOLIC ACID400 MC1 PO; +NOVOLIN N100 UNIT/1 SC; +VITAMIN B-121000 MCG PO; +VITAMIN D35000 UNIT PO
[2018-07-16 08:18] VITALS: BP 151/65
== END 2018-07-16 08:35 | disposition home or self-care (01) ==
LOC: ENDO 06:10 → ORM 12:45
PROVIDERS: ATTEND Surgery
PROC: 0DJD8ZZ Inspection of Lower Intestinal Tract, Via Natural or Artificial Opening Endoscopic (ICD-10-PCS; principal; 2018-07-16)
PROC: 0DJ08ZZ Inspection of Upper Intestinal Tract, Via Natural or Artificial Opening Endoscopic (ICD-10-PCS; 2018-07-16)
DX: R19.5 Other fecal abnormalities (principal); R10.9 Unspecified abdominal pain; I25.10 Atherosclerotic heart disease of native coronary artery without angina pectoris; N18.9 Chronic kidney disease, unspecified; Z95.5 Presence of coronary angioplasty implant and graft; Z85.038 Personal history of other malignant neoplasm of large intestine; Z98.84 Bariatric surgery status

== ENCOUNTER → 2018-09-22 | Outpatient (REF) | payer MEDICARE, OTHER ==
[2018-09-22 09:10] LABS: HEMATOCRIT 33.2 % (37.0-47.0); HEMOGLOBIN 10.3 g/dl (12.0-16.0); MEAN CELL VOLUME 90.7 fL CALC (80.0-100.0); MEAN CORPUSCULAR HGB 28.1 pG CALC (26.0-32.0); RED BLOOD COUNT 3.66 mill/uL (4.20-5.60); RED CELL DISTRI WIDTH 16.2 % (11.5-15.5)
[2018-09-22 09:33] LABS: ALBUMIN 3.4 g/dL (3.2-5.0); BILIRUBIN, TOTAL 0.4 mg/dL (0.0-1.4); CHOLESTEROL HDL RATIO 2.3 (<4.4 (CALC)); CREATININE 1.4 mg/dL (0.5-1.0); POTASSIUM 4.5 mmol/l (3.5-5.1); TOTAL PROTEIN 5.9 g/dL (6.3-8.2)
[2018-09-22 10:04] LABS: URINE BILIRUBIN - DIPSTICK NEGATIVE (NEGATIVE); URINE BLOOD DIPSTICK NEGATIVE (NEGATIVE); URINE COLOR YELLOW; URINE GLUCOSE - DIPSTICK NEGATIVE (NEGATIVE); URINE KETONE NEGATIVE (NEGATIVE); URINE LEUK ESTERASE NEGATIVE (NEGATIVE); URINE NITRITE - DIPSTICK NEGATIVE (Negative); URINE PH 5.5 (4.5-8.0); URINE PROTEIN - DIPSTICK NEGATIVE (NEG-TRACE); URINE SPECIFIC GRAVITY 1.015; URINE UROBILINOGEN - DIPSTICK 0.2 E.U./dL (0.2)
== END | disposition home or self-care (01) ==
LOC: LAB 08:08
PROVIDERS: ATTEND Internal Medicine
DX: E05.90 Thyrotoxicosis, unspecified without thyrotoxic crisis or storm (principal); E11.42 Type 2 diabetes mellitus with diabetic polyneuropathy; G47.33 Obstructive sleep apnea (adult) (pediatric); I10 Essential (primary) hypertension; M10.9 Gout, unspecified

== ENCOUNTER 2018-10-19 17:06 | Emergency (ER) | payer MEDICARE, OTHER ==
[~2018-10-19] VITALS: Ht 160 cm; Wt 93.2 kg
[2018-10-19 18:37] LABS: HEMATOCRIT 35.7 % (37.0-47.0); HEMOGLOBIN 11.4 g/dl (12.0-16.0); IMMATURE GRANULOCYTES 0.3 % (0.0-5.0); MEAN CELL VOLUME 89.9 fL CALC (80.0-100.0); MEAN CORPUSCULAR HGB 28.7 pG CALC (26.0-32.0); MEAN CORPUSCULAR HGB CONC 31.9 g/L CALC (32.0-36.0); NEUT# 6.27 thou/uL (2.00-7.15); RED BLOOD COUNT 3.97 mill/uL (4.20-5.60)
[2018-10-19 18:51] LABS: BILIRUBIN, TOTAL 0.5 mg/dL (0.0-1.4); CREATININE 1.4 mg/dL (0.5-1.0); TOTAL PROTEIN 6.8 g/dL (6.3-8.2)
[2018-10-19 18:52] LABS: ALBUMIN 4.1 g/dL (3.2-5.0); POTASSIUM 5.2 mmol/l (3.5-5.1)
--- NOTE | 2018-10-19 19:13 | NUR ---
BREATHING TREATMENT GIVEN BACK TO BACK. BREATHING TECH. FOR GOOD DEPOSITION TO THE LUNGS.
[2018-10-19] MEDS ORDERED: VENTOLIN HFA IN (19:40)
[2018-10-19] MEDS ORDERED: TAM75CAP PO (19:40)
[2018-10-19] MEDS ORDERED: PREDNISONE50 MG PO (19:40)
[2018-10-19 20:00] VITALS: BP 123/56
[2018-10-20] MEDS ORDERED: JANUVIA50 MG PO (01:41)
== END 2018-10-19 20:00 | disposition home or self-care (01) ==
LOC: ED 17:06
PROVIDERS: Emergency Medicine
DX: J10.1 Influenza due to other identified influenza virus with other respiratory manifestations (principal); I25.10 Atherosclerotic heart disease of native coronary artery without angina pectoris; I10 Essential (primary) hypertension; E11.9 Type 2 diabetes mellitus without complications; Z95.5 Presence of coronary angioplasty implant and graft

== ENCOUNTER 2018-10-19 22:42 | Observation (INO) | payer MEDICARE, OTHER ==
[~2018-10-19] VITALS: Ht 160 cm; Wt 92.2 kg
[~2018-10-19 22:42] MED LIST changes: +PREDNISONE50 MG PO; +TAM75CAP PO; +VENTOLIN HFA IN
--- NOTE | 2018-10-19 22:50 | NUR ---
A/O F WITH SUDDEN ONSET PAIN BURNING TYP LUE CHEST L NECK THIS PM AT REST PALP PERIP PULSES EQUAL.W/P/D SKIN S1S2 CLEAR BILAT BREATH SOUNDS SL UR MIKE OCC ROUGH CARPENTER COUGH.
[2018-10-19 23:18] LABS: HEMATOCRIT 35.5 % (37.0-47.0); IMMATURE GRANULOCYTES 0.3 % (0.0-5.0); MEAN CELL VOLUME 91.5 fL CALC (80.0-100.0); MEAN CORPUSCULAR HGB 28.4 pG CALC (26.0-32.0); NEUT# 8.43 thou/uL (2.00-7.15); RED BLOOD COUNT 3.88 mill/uL (4.20-5.60); RED CELL DISTRI WIDTH 16.2 % (11.5-15.5)
[2018-10-19 23:33] LABS: ALBUMIN 3.8 g/dL (3.2-5.0); BILIRUBIN, TOTAL 0.5 mg/dL (0.0-1.4); CREATININE 1.6 mg/dL (0.5-1.0); POTASSIUM 4.8 mmol/l (3.5-5.1); TOTAL PROTEIN 6.4 g/dL (6.3-8.2)
--- NOTE | 2018-10-19 23:35 | NUR ---
SR NO ECTOPY NO COUGH SR NO ECTOPIC BEATS NO DYSRHYTHMIAS W/P/D SKIN
--- NOTE | 2018-10-19 23:40 | NUR ---
BREATHING TREATMENT GIVEN. BREATHING TECH. FOR GOOD DEPOSITION TO THE LUNGS.
--- NOTE | 2018-10-20 00:53 | NUR ---
DR Liriano [facility]
[2018-10-20] MEDS ORDERED: JANUVIA50 MG PO (01:41)
--- NOTE | 2018-10-20 02:05 | NUR ---
ADVISED ON PENDING ADM SR NO ECTOPY W/P/D SKIN CLEAR BILAT BREATH SOUNDS
--- NOTE | 2018-10-20 03:05 | NUR ---
PHONE REPORT TO NURSE WALTER ON MS2
--- NOTE | 2018-10-20 03:10 | NUR ---
TO MS RM 267 VIA STRETCHEER ON MONITOR IN STABLE CONDITION
[2018-10-20 03:30] VITALS: BP 163/93
--- NOTE | 2018-10-20 03:30 | NUR ---
ARRIVED AT FLOOR AT THIS TIME, TRANSPORTED VIA BED, PATIENT SETTLED IN BED, ORIENTED TO PHONE, TV AND CALL LIGHT SYSTEM, DENIES PAIN OR DISCOMFORT AT THIS TIME,PATIENT ON CONTACT FOR HISTORY OF ESBL AND ON DROPLET PRECATION FOR FLU. CALL LIGHT AT REACH.
--- NOTE | 2018-10-20 05:07 | NUR ---
RECTAL SWAB FOR HISTORY OF ESBL DONE.
--- NOTE | 2018-10-20 06:20 | NUR ---
BS TAKEN AT THIS TIME 319MG/DL, RESTING IN BED, CALL LIGHT AT REACH.
[2018-10-20 06:47] LABS: CREATININE 1.4 mg/dL (0.5-1.0); POTASSIUM 4.6 mmol/l (3.5-5.1)
--- NOTE | 2018-10-20 07:00 | NUR ---
REPORT RECEIVED FROM AISLINN CAMPOS;PT APPEARS TO BE RESTING IN SEMI FOWLERS POSITION;INTRODUCED SELF TO PT AND POC DISCUSSED;RESPIRATIONS EVEN AND UNLABORED ON RA;PT DENIES ANY CURRENT PAIN OR NEEDS;CONTACT AND DROPLET PRECAUTIONS IN PLACE;PT ENCOURAGED TO CALL FOR ASSISTANCE IF NEEDED;CALL LIGHT IN REACH;WILL CONTINUE T0 MONITOR
--- NOTE | 2018-10-20 07:39 | NUR ---
RECEIVED A PHONE CALL FROM LAB CRITICALLY HIGH TROPONIN 0.141 @ 0704, PATIENT WAS SEEN ON THE BATHROOM VOIDING, DENIES CHEST PAIN, PATIENT SETTLED BACK IN BED V/S FOLLOWS: bp146/82 t96.8 p84 r20. EKG WAS DONE @ 0624 NORMAL SINUS RHYTHM, CALLED DR. WILKINS AT 0719 INFORMED OF THE HEALTH STATUS AND LATEST EKG ORDER TO CONTINUE TO DO THE SCHED TROPONIN @1016 BUT IF PATIENT EXPERIENCED CHEST PAIN DO STAT TROPONIN. NURSE NUSRAT MADE AWARE.
[2018-10-20 07:47] VITALS: BP 148/69
--- NOTE | 2018-10-20 07:50 | NUR ---
PT RESTING IN SEMI FOWLERS POSITION,A&O X3;VS OBTAINED AND ASSESSMENT COMPLETED;PT DENIES ANY CURRENT PAIN OR DISCOMFORTS,PAIN SCALE AND REPORTING EDUCATED;RESPIRATIONS EVEN AND UNLABORED ON RA,CLEAR LUNG SOUNDS;ABDOMEN DISTENDED/SOFT ON PALPATION AND ACTIVE IN ALL 4 QUADRANTS;WEAK PEDAL PULSES;SKIN INTACT;#22G TO RIGHT WRIST FLUSHED AND PATENT,SITE APPEARS HEALTHY;TELE MONITORING IN PLACE;LIMB ALERT NOTED TO LEFT ARM;ACCUCHECK 319, PT COVERED WITH SLIDING NOVOLOG PER ORDER;PT DENIES ANY ADDITIONAL NEEDS AT THIS TIME AND IS ENCOURAGED TO CALL FOR ASSISTANCE IF NEEDED;FALL PRECAUTIONS IN PLACE WITH BED IN THE LOWEST POSITION AND CALL LIGHT IN REACH;WILL CONTINUE TO MONITOR
--- NOTE | 2018-10-20 11:25 | NUR ---
CRITICAL TROP OF 0.260 OBTAINED BY AISLINN CHILDS. PT MD ZAFAR TO BE NOTIFIED.
--- NOTE | 2018-10-20 11:35 | NUR ---
PT RESTING IN SEMI FOWLERS POSITION;RESPIRATIONS EVEN AND UNLABORED ON RA;PT DENIES ANY CURRENT PAIN OR NEEDS;TELE MONITORING IN PLACE;ACCUCHECK 299,PT COVERED WITH SLIDING SCALE NOVOLOG PER ORDER;PT DENIES ANY ADDITIONAL NEEDS AT THIS TIME AND IS ENCOURAGED TO CALL FOR ASSISTANCE IF NEEDED;CALL LIGHT IN REACH;WILL CONTINUE TO MONITOR
--- NOTE | 2018-10-20 11:40 | NUR ---
AT BEDSIDE DISCUSSING POC.
[2018-10-20 13:42] LABS: URINE BILIRUBIN - DIPSTICK NEGATIVE (NEGATIVE); URINE BLOOD DIPSTICK NEGATIVE (NEGATIVE); URINE COLOR YELLOW; URINE GLUCOSE - DIPSTICK 500 mg/dL (NEGATIVE); URINE KETONE NEGATIVE (NEGATIVE); URINE LEUK ESTERASE NEGATIVE (Negative); URINE NITRITE - DIPSTICK NEGATIVE (Negative); URINE PROTEIN - DIPSTICK NEGATIVE (NEG-TRACE); URINE SPECIFIC GRAVITY 1.015; URINE UROBILINOGEN - DIPSTICK 0.2 E.U./dL (0.2)
[2018-10-20 13:45] LABS: URINE CLARITY CLEAR
--- NOTE | 2018-10-20 15:20 | NUR ---
CRITICAL TROP OF 0.317 RECEIVED BY AISLINN LUGO;MD NOTIFIED AT THIS TIME, NO NEW ORDERS RECEIVED;PT ASYMPTOMATIC RESTING IN BED;WILL CONTINUE TO MONITOR
[2018-10-20 16:00] VITALS: BP 135/64
--- NOTE | 2018-10-20 16:10 | NUR ---
PT RESTING IN SUPINE POSITION;RESPIRATIONS EVEN AND UNLABORED ON RA;PT DENIES ANY CURRENT PAIN OR DISCOMFORTS;TELE MONITORING IN PLACE;IV SITE TO LEFT WRIST PATENT;PT DENIES ANY CURRENT NEEDS AND IS ENCOURAGED TO CALL FOR ASSISTANCE IF NEEDED;CALL LIGHT IN REACH;WILL CONTINUE TO MONITOR
--- NOTE | 2018-10-20 16:50 | NUR ---
CRITICAL TROP OF 0.309. NOTIFIED AND NO NEW ORDERS RECEIVED.
--- NOTE | 2018-10-20 19:00 | NUR ---
RECEIVED REPORT FROM NURSE NUSRAT, PATIENT RESTING IN BED, DENIES PAIN OR DISCOMRT, CALL LIGHT [place].
[2018-10-20 19:36] VITALS: BP 121/68
--- NOTE | 2018-10-20 20:35 | NUR ---
CALLED DR WILKINS INFORMED OF TROPONIN LEVELS TREND THROUGHOUT THE DAY, AND CURRENT V/S BP 128/68 TEMP 97 HR 62 R 20, POX 96% RA, AND PATIENT DENIES CHEST PAIN, ORDERED TROPONIN EVERY 8 HOURS.
[2018-10-20 23:57] VITALS: BP 137/80
--- NOTE | 2018-10-21 00:54 | NUR ---
RECEIVED A PHONE CALL FROM [facility](LAB) CRITICAL HIGH TROPONIN 0.234, AWARE OF TREND, PATIENT ASYMPTOMATIC, DENIES CHEST DISCOMFORT TELE SR 69, VSS.
[2018-10-21 03:41] VITALS: BP 131/70
--- NOTE | 2018-10-21 04:00 | NUR ---
PATIENT RESTING IN BED, APPEARS TO BE SLEEPING WITH EYES CLOSED, EVEN UNLABORED BREATHING CALL LIGHT WITHIN REACH, REMAINS ON TELE SR 66.
[2018-10-21 05:37] LABS: HEMATOCRIT 32.6 % (37.0-47.0); HEMOGLOBIN 10.4 g/dl (12.0-16.0); IMMATURE GRANULOCYTES 0.3 % (0.0-5.0); MEAN CELL VOLUME 88.3 fL CALC (80.0-100.0); MEAN CORPUSCULAR HGB 28.2 pG CALC (26.0-32.0); MEAN CORPUSCULAR HGB CONC 31.9 g/L CALC (32.0-36.0); NEUT# 7.21 thou/uL (2.00-7.15); RED BLOOD COUNT 3.69 mill/uL (4.20-5.60); RED CELL DISTRI WIDTH 15.9 % (11.5-15.5)
[2018-10-21 06:09] LABS: ALBUMIN 3.3 g/dL (3.2-5.0); ALKALINE PHOSPHATASE 96 u/l (38-126); AMYLASE 99 u/l (30-110); ANION GAP 15 (6-22 (CALC)); BILIRUBIN, TOTAL 0.3 mg/dL (0.0-1.4); BUN 40 mg/dL (8-23); BUN/CREATININE RATIO 28 (12-20 (CALC)); CARBON DIOXIDE 18 mmol/l (22-30); CHLORIDE 111 mmol/l (95-108); CREATININE 1.5 mg/dL (0.5-1.0); GFR 35 ML/MIN (>=60 (CALC)); GFR FOR AFR.AMER. 42 ML/MIN (>=60 (CALC)); LIPASE 82 u/l (23-300); MAGNESIUM 1.7 mg/dL (1.6-2.3); POTASSIUM 4.7 mmol/l (3.5-5.1); SGOT/AST 22 u/l (9-36); SODIUM 140 mmol/l (137-146); TOTAL PROTEIN 5.7 g/dL (6.3-8.2)
--- NOTE | 2018-10-21 06:29 | NUR ---
REPORTED LATEST TROPONIN TO DR. WLIKINS, NO NEW ORDERS MADE AT THIS TIME.
--- NOTE | 2018-10-21 07:00 | NUR ---
SHIFT CHANGE REPORT,PT AWAKE ALERT AND OREINTED, NO C/O PAIN AT THIS TIME BUT HAVING HACKING COUGH, TELE MONITOR IN PLACE, CALL BUTLER IN REACH, SPOUSE AT BEDSIDE.
[2018-10-21 08:00] VITALS: BP 163/77
[2018-10-21 11:15] VITALS: BP 148/82
--- NOTE | 2018-10-21 12:02 | NUR ---
SITTING UP IN RECLINER HAVING MEAL, ALL NEEDS ADDRESSED, SPOUSE AT BEDSIDE.
--- NOTE | 2018-10-21 14:12 | NUR ---
DR JAMISON ROUNDED AND DISCUSSED PLAN OF CARE TO D/C HOME AND FOLLOW UP WITH DR. CHILEL AND VIVIANA, PT AND SPOUSE STATED UNDERSTANDING.
--- NOTE | 2018-10-21 15:43 | NUR ---
Discharge instructions given. Patient verbalizes understanding of same. Discharged in stable condition via Wheelchair to Home with spouse. All belongings sent with pt.
== END 2018-10-21 15:45 | disposition home or self-care (01) ==
LOC: ED 22:42 → ED-I 10-20 01:48 → ED 10-20 02:15 → MS2 10-20 02:16
PROVIDERS: Family Medicine; Internal Medicine Nephrology; ADMIT Internal Medicine; ATTEND Internal Medicine
DX: R07.89 Other chest pain (principal); N17.9 Acute kidney failure, unspecified; E86.0 Dehydration; I12.9 Hypertensive chronic kidney disease with stage 1 through stage 4 chronic kidney disease, or unspecified chronic kidney disease; E11.22 Type 2 diabetes mellitus with diabetic chronic kidney disease; N18.3 Chronic kidney disease, stage 3 (moderate); J10.1 Influenza due to other identified influenza virus with other respiratory manifestations; I25.10 Atherosclerotic heart disease of native coronary artery without angina pectoris; D63.1 Anemia in chronic kidney disease; M19.90 Unspecified osteoarthritis, unspecified site; M10.9 Gout, unspecified; E87.2 Acidosis; E78.5 Hyperlipidemia, unspecified; Z87.891 Personal history of nicotine dependence; Z95.5 Presence of coronary angioplasty implant and graft; Z79.4 Long term (current) use of insulin
CPT/HCPCS: J1650

== ENCOUNTER 2018-10-28 19:59 | Emergency (ER) | payer MEDICARE, OTHER ==
[~2018-10-28] VITALS: Ht 160 cm; Wt 91.0 kg
[~2018-10-28 19:59] MED LIST changes: +JANUVIA50 MG PO
[2018-10-28 22:13] LABS: HEMATOCRIT 36.3 % (37.0-47.0); HEMOGLOBIN 11.4 g/dl (12.0-16.0); IMMATURE GRANULOCYTES 0.7 % (0.0-5.0); MEAN CELL VOLUME 89.2 fL CALC (80.0-100.0); MEAN CORPUSCULAR HGB CONC 31.4 g/L CALC (32.0-36.0); NEUT# 8.16 thou/uL (2.00-7.15); RED BLOOD COUNT 4.07 mill/uL (4.20-5.60); RED CELL DISTRI WIDTH 16.2 % (11.5-15.5)
[2018-10-28 22:35] LABS: ALKALINE PHOSPHATASE 121 u/l (38-126); BILIRUBIN, TOTAL 0.4 mg/dL (0.0-1.4); BUN 38 mg/dL (8-23); BUN/CREATININE RATIO 22 (12-20 (CALC)); CARBON DIOXIDE 20 mmol/l (22-30); CHLORIDE 112 mmol/l (95-108); CREATININE 1.7 mg/dL (0.5-1.0); GFR 30 ML/MIN (>=60 (CALC)); GFR FOR AFR.AMER. 36 ML/MIN (>=60 (CALC)); SGOT/AST 17 u/l (9-36); SODIUM 142 mmol/l (137-146); TOTAL PROTEIN 6.5 g/dL (6.3-8.2)
[2018-10-28 22:43] LABS: ANION GAP 15 (6-22 (CALC)); POTASSIUM 5.2 mmol/l (3.5-5.1)
[2018-10-28 22:48] LABS: MYOGLOBIN 46 ng/mL (0 - 62)
[2018-10-28] MEDS ORDERED: LANTUS100 UNIT/M SC (23:05)
[2018-10-28] MEDS ORDERED: SPIRIVA HANDIHALER IN (23:06)
[2018-10-28] MEDS ORDERED: CODEINE/GUAIFEN1 SOL PO (23:27)
[2018-10-28] MEDS ORDERED: PROVENTIL HFA IN (23:27)
[2018-10-28 23:49] VITALS: BP 175/80
== END 2018-10-28 23:49 | disposition home or self-care (01) ==
LOC: ED 19:59
PROVIDERS: Emergency Medicine
DX: J40 Bronchitis, not specified as acute or chronic (principal); J98.11 Atelectasis; I25.10 Atherosclerotic heart disease of native coronary artery without angina pectoris; I10 Essential (primary) hypertension; E11.9 Type 2 diabetes mellitus without complications; Z95.5 Presence of coronary angioplasty implant and graft

== ENCOUNTER 2019-03-11 19:21 | Observation (INO) | payer MEDICARE, OTHER ==
[~2019-03-11] VITALS: Ht 160 cm; Wt 89.0 kg
[~2019-03-11 19:21] MED LIST changes: +CODEINE/GUAIFEN1 SOL PO; +PROVENTIL HFA IN; +SPIRIVA HANDIHALER IN
[2019-03-11 19:59] LABS: HEMATOCRIT 31.9 % (37.0-47.0); HEMOGLOBIN 10.1 g/dl (12.0-16.0); IMMATURE GRANULOCYTES 0.4 % (0.0-5.0); MEAN CORPUSCULAR HGB 28.1 pG CALC (26.0-32.0); MEAN CORPUSCULAR HGB CONC 31.7 g/L CALC (32.0-36.0); NEUT# 5.79 thou/uL (2.00-7.15); RED BLOOD COUNT 3.59 mill/uL (4.20-5.60); RED CELL DISTRI WIDTH 15.9 % (11.5-15.5)
[2019-03-11 20:01] LABS: MEAN CELL VOLUME 88.9 fL CALC (80.0-100.0)
[2019-03-11 20:18] LABS: ACT PARTIAL THROMBO TIME 24.4 SECONDS (20.0-32.5)
[2019-03-11 20:21] LABS: ALBUMIN 3.8 g/dL (3.2-5.0); ALKALINE PHOSPHATASE 110 u/l (38-126); BILIRUBIN, TOTAL 0.3 mg/dL (0.0-1.4); BUN 33 mg/dL (8-23); BUN/CREATININE RATIO 22 (12-20 (CALC)); CHLORIDE 112 mmol/l (95-108); CREATININE 1.5 mg/dL (0.5-1.0); GFR 35 ML/MIN (>=60 (CALC)); GFR FOR AFR.AMER. 42 ML/MIN (>=60 (CALC)); LIPASE 97 u/l (23-300); MAGNESIUM 1.6 mg/dL (1.6-2.3); POTASSIUM 4.8 mmol/l (3.5-5.1); SGOT/AST 23 u/l (9-36); SODIUM 141 mmol/l (137-146); TOTAL PROTEIN 6.9 g/dL (6.3-8.2)
[2019-03-11 20:23] LABS: ANION GAP 14 (6-22 (CALC)); CARBON DIOXIDE 20 mmol/l (22-30)
[2019-03-11 22:30] VITALS: BP 132/78
[2019-03-12 03:30] VITALS: BP 120/54
[2019-03-12 03:35] LABS: HEMATOCRIT 30.4 % (37.0-47.0); HEMOGLOBIN 9.6 g/dl (12.0-16.0); IMMATURE GRANULOCYTES 0.2 % (0.0-5.0); MEAN CELL VOLUME 88.6 fL CALC (80.0-100.0); MEAN CORPUSCULAR HGB CONC 31.6 g/L CALC (32.0-36.0); NEUT# 4.27 thou/uL (2.00-7.15); RED BLOOD COUNT 3.43 mill/uL (4.20-5.60); RED CELL DISTRI WIDTH 15.9 % (11.5-15.5)
[2019-03-12 03:48] LABS: ALBUMIN 3.2 g/dL (3.2-5.0); BILIRUBIN, TOTAL 0.3 mg/dL (0.0-1.4); CHOLESTEROL HDL RATIO 2.6 (<4.4 (CALC)); CREATININE 1.4 mg/dL (0.5-1.0); POTASSIUM 4.7 mmol/l (3.5-5.1); TOTAL PROTEIN 5.9 g/dL (6.3-8.2)
[2019-03-12 04:08] VITALS: BP 135/73
[2019-03-12 07:53] VITALS: BP 137/70
[2019-03-12 10:45] VITALS: BP 122/71
== END 2019-03-12 11:25 | disposition home or self-care (01) ==
LOC: ED 19:21 → ED-I 20:40 → ED 20:59 → MS2 21:00
PROVIDERS: ADMIT Internal Medicine; ATTEND Internal Medicine
DX: R07.89 Other chest pain (principal); I25.10 Atherosclerotic heart disease of native coronary artery without angina pectoris; I12.9 Hypertensive chronic kidney disease with stage 1 through stage 4 chronic kidney disease, or unspecified chronic kidney disease; E11.22 Type 2 diabetes mellitus with diabetic chronic kidney disease; N18.9 Chronic kidney disease, unspecified; E78.5 Hyperlipidemia, unspecified; M19.90 Unspecified osteoarthritis, unspecified site; M10.9 Gout, unspecified; E03.9 Hypothyroidism, unspecified; I45.6 Pre-excitation syndrome; Z79.4 Long term (current) use of insulin; Z95.5 Presence of coronary angioplasty implant and graft; Z79.02 Long term (current) use of antithrombotics/antiplatelets

== ENCOUNTER 2019-08-18 | Emergency (ER) | payer MEDICARE, OTHER | END 2019-08-18 18:50 | disposition home or self-care (01) | DX: M54.5 Low back pain (principal); M19.90 Unspecified osteoarthritis, unspecified site; I12.9 Hypertensive chronic kidney disease with stage 1 through stage 4 chronic kidney disease, or unspecified chronic kidney disease; N18.4 Chronic kidney disease, stage 4 (severe) ==

== ENCOUNTER 2020-10-27 | Emergency (ER) | payer MEDICARE, OTHER ==
[2020-10-27 23:12] LABS: URINE BILIRUBIN - DIPSTICK NEGATIVE (NEGATIVE); URINE BLOOD DIPSTICK SMALL (NEGATIVE); URINE COLOR YELLOW; URINE GLUCOSE - DIPSTICK NEGATIVE (NEGATIVE); URINE KETONE NEGATIVE (NEGATIVE); URINE PH 5.5 (4.5-8.0); URINE PROTEIN - DIPSTICK TRACE mg/dL (NEG-TRACE); URINE UROBILINOGEN - DIPSTICK 0.2 E.U./dL (0.2)
[2020-10-27 23:12] LABS: HEMATOCRIT 37.9 % (37.0-47.0); IMMATURE GRANULOCYTES 0.3 % (0.0-5.0); MEAN CELL VOLUME 94.8 fL CALC (80.0-100.0); MEAN CORPUSCULAR HGB CONC 31.7 g/dL CAL (32.0-36.0); NEUT# 10.1 thou/uL (2.00-7.15); RED CELL DISTRI WIDTH 14.9 % (11.5-15.5)
[2020-10-27 23:25] LABS: URINE LEUK ESTERASE MODERATE (NEGATIVE); URINE NITRITE - DIPSTICK POSITIVE (Negative)
[2020-10-27 23:28] LABS: URINE BACTERIA MANY hpf; URINE SQUAMOUS EPITHELIAL CELL FEW EPI/hpf (0-FEW); URINE WBC 20-50 WBC/hpf (0-5)
[2020-10-28 00:15] LABS: ALBUMIN 3.6 g/dL (3.2-5.0); BILIRUBIN, TOTAL 0.7 mg/dL (0.0-1.4); CREATININE 1.4 mg/dL (0.5-1.0); POTASSIUM 4.9 mmol/l (3.5-5.1); TOTAL PROTEIN 6.3 g/dL (6.3-8.2)
[2020-10-28] MEDS ORDERED: BACTRIM DS1 TAB PO (00:26)
--- NOTE | 2020-10-29 08:17 | NUR ---
PRELIM BLOOD CX SHOWS GRAM NEGATIVE RODS IN 1 AEROBIC BOTTLE, E COLI, SAME URINE CX. REPORTED RESULTS TO DR GALVIN IN ER. ADVISED TO CONTACT PT. SPOKE WITH PT THIS AM, REPORTS UTI SYMPTOMS IMPROVING BUT HAS BEEN EXPERIENCING FEVER/CHILLS. ASKED PT TO RETURN TO ER FOR EVALUATION, PT AGREEABLE. DR GALVIN AWARE TO BE EXPECTING PT.
[2020-10-29] MEDS ORDERED: REPAGLINIDE2 MG (10:10)
[2021-06-26] MEDS ORDERED: PRAVASTATIN20 MG PO (12:39)
== END 2020-10-28 01:15 | disposition home or self-care (01) ==
PROVIDERS: Family Medicine
DX: N12 Tubulo-interstitial nephritis, not specified as acute or chronic (principal); I12.9 Hypertensive chronic kidney disease with stage 1 through stage 4 chronic kidney disease, or unspecified chronic kidney disease; E11.22 Type 2 diabetes mellitus with diabetic chronic kidney disease; N18.9 Chronic kidney disease, unspecified; I25.10 Atherosclerotic heart disease of native coronary artery without angina pectoris; B96.20 Unspecified Escherichia coli [E. coli] as the cause of diseases classified elsewhere; R78.81 Bacteremia; Z95.5 Presence of coronary angioplasty implant and graft; Z98.84 Bariatric surgery status; Z87.440 Personal history of urinary (tract) infections; Z87.442 Personal history of urinary calculi; Z79.4 Long term (current) use of insulin; Z85.3 Personal history of malignant neoplasm of breast; Z20.822 Contact with and (suspected) exposure to COVID-19

== ENCOUNTER 2020-10-29 08:56 | Inpatient (IN) | payer MEDICARE, OTHER ==
[~2020-10-29] VITALS: Ht 160 cm; Wt 94.0 kg
[~2020-10-29 08:56] MED LIST changes: +BACTRIM DS1 TAB PO
[2020-10-29 09:52] LABS: HEMATOCRIT 32.8 % (37.0-47.0); HEMOGLOBIN 10.3 g/dl (12.0-16.0); IMMATURE GRANULOCYTES 0.3 % (0.0-5.0); MEAN CELL VOLUME 95.3 fL CALC (80.0-100.0); MEAN CORPUSCULAR HGB 29.9 pG CALC (26.0-32.0); MEAN CORPUSCULAR HGB CONC 31.4 g/dL CAL (32.0-36.0); NEUT# 6.22 thou/uL (2.00-7.15); RED BLOOD COUNT 3.44 mill/uL (4.20-5.60); RED CELL DISTRI WIDTH 14.8 % (11.5-15.5)
[2020-10-29] MEDS ORDERED: REPAGLINIDE2 MG (10:10)
[2020-10-29 10:12] LABS: PROTHROMBIN TIME 10.4 SECONDS (9.0-12.5)
[2020-10-29 10:16] LABS: ALBUMIN 3.5 g/dL (3.2-5.0); BILIRUBIN, TOTAL 0.6 mg/dL (0.0-1.4); CREATININE 1.8 mg/dL (0.5-1.0); MAGNESIUM 1.8 mg/dL (1.6-2.3); POTASSIUM 4.7 mmol/l (3.5-5.1); TOTAL PROTEIN 6.4 g/dL (6.3-8.2)
[2020-10-29 10:28] LABS: C-REACTIVE PROTEIN 16.5 mg/dL (0-0.9)
[2020-10-29 11:45] LABS: URINE BILIRUBIN - DIPSTICK NEGATIVE (NEGATIVE); URINE BLOOD DIPSTICK NEGATIVE (NEGATIVE); URINE COLOR YELLOW; URINE GLUCOSE - DIPSTICK NEGATIVE (NEGATIVE); URINE KETONE NEGATIVE (NEGATIVE); URINE PROTEIN - DIPSTICK NEGATIVE (NEG-TRACE); URINE UROBILINOGEN - DIPSTICK 0.2 E.U./dL (0.2)
[2020-10-29 11:52] LABS: URINE LEUK ESTERASE MODERATE (NEGATIVE); URINE NITRITE - DIPSTICK NEGATIVE (Negative)
[2020-10-29 12:17] LABS: URINE RBC 0-2 RBC/hpf (0-5); URINE SQUAMOUS EPITHELIAL CELL FEW EPI/hpf (0-FEW)
[2020-10-29 14:02] VITALS: BP 140/72
[2020-10-29 19:01] VITALS: BP 132/60
[2020-10-30 04:00] VITALS: BP 148/72
[2020-10-30 04:45] LABS: HEMOGLOBIN 9.9 g/dl (12.0-16.0); IMMATURE GRANULOCYTES 0.4 % (0.0-5.0); MEAN CELL VOLUME 95.4 fL CALC (80.0-100.0); MEAN CORPUSCULAR HGB 30.5 pG CALC (26.0-32.0); MEAN CORPUSCULAR HGB CONC 31.9 g/dL CAL (32.0-36.0); NEUT# 4.67 thou/uL (2.00-7.15); RED BLOOD COUNT 3.25 mill/uL (4.20-5.60); RED CELL DISTRI WIDTH 14.8 % (11.5-15.5)
[2020-10-30 05:00] LABS: ALBUMIN 2.8 g/dL (3.2-5.0); BILIRUBIN, TOTAL 0.5 mg/dL (0.0-1.4); CREATININE 1.6 mg/dL (0.5-1.0); POTASSIUM 4.8 mmol/l (3.5-5.1); TOTAL PROTEIN 5.2 g/dL (6.3-8.2)
[2020-10-30 07:40] VITALS: BP 129/65
[2020-10-30 14:56] VITALS: BP 127/73
[2020-10-30 19:00] VITALS: BP 164/66
[2020-10-30 19:26] VITALS: BP 147/55
[2020-10-31 03:50] VITALS: BP 114/60
[2020-10-31 05:09] LABS: HEMATOCRIT 33.1 % (37.0-47.0); HEMOGLOBIN 10.5 g/dl (12.0-16.0); IMMATURE GRANULOCYTES 0.5 % (0.0-5.0); MEAN CELL VOLUME 94.6 fL CALC (80.0-100.0); MEAN CORPUSCULAR HGB CONC 31.7 g/dL CAL (32.0-36.0); NEUT# 8.45 thou/uL (2.00-7.15); RED BLOOD COUNT 3.5 mill/uL (4.20-5.60); RED CELL DISTRI WIDTH 14.8 % (11.5-15.5)
[2020-10-31 05:34] LABS: ALBUMIN 3.3 g/dL (3.2-5.0); BILIRUBIN, TOTAL 0.7 mg/dL (0.0-1.4); CREATININE 1.6 mg/dL (0.5-1.0); TOTAL PROTEIN 6.1 g/dL (6.3-8.2)
[2020-10-31 05:46] LABS: POTASSIUM 5.2 mmol/l (3.5-5.1)
[2020-10-31 07:30] VITALS: BP 125/72
[2020-10-31 09:06] VITALS: BP 125/72
[2020-10-31] MEDS ORDERED: OMNICEF300 MG PO (14:49)
[2021-06-26] MEDS ORDERED: PRAVASTATIN20 MG PO (12:39)
== END 2020-10-31 15:44 | disposition home or self-care (01) | DRG 690 ==
LOC: ED 08:56 → ED-I 10:55 → ED 11:22 → MS2 11:24
PROVIDERS: Emergency Medicine; Physician Assistant; ADMIT Internal Medicine; ATTEND Internal Medicine
DX: N39.0 Urinary tract infection, site not specified (principal); R78.81 Bacteremia; I12.9 Hypertensive chronic kidney disease with stage 1 through stage 4 chronic kidney disease, or unspecified chronic kidney disease; E11.22 Type 2 diabetes mellitus with diabetic chronic kidney disease; N18.30 Chronic kidney disease, stage 3 unspecified; I25.10 Atherosclerotic heart disease of native coronary artery without angina pectoris; E11.65 Type 2 diabetes mellitus with hyperglycemia; E78.5 Hyperlipidemia, unspecified; E03.9 Hypothyroidism, unspecified; M10.9 Gout, unspecified; I45.6 Pre-excitation syndrome; B96.20 Unspecified Escherichia coli [E. coli] as the cause of diseases classified elsewhere; Z98.84 Bariatric surgery status; Z95.5 Presence of coronary angioplasty implant and graft; Z87.442 Personal history of urinary calculi; Z79.4 Long term (current) use of insulin; Z85.3 Personal history of malignant neoplasm of breast; Z87.891 Personal history of nicotine dependence; Z20.822 Contact with and (suspected) exposure to COVID-19; Z87.440 Personal history of urinary (tract) infections
CPT/HCPCS: G0378; J0692; Q3014

== ENCOUNTER 2021-03-05 08:15 | Emergency (ER) | payer MEDICARE, OTHER ==
[~2021-03-05] VITALS: Ht 160 cm; Wt 100.0 kg
[~2021-03-05 08:15] MED LIST changes: +OMNICEF300 MG PO; +REPAGLINIDE2 MG
[2021-03-05] MEDS ORDERED: EMLA CREAM5 GM/TUBE EX (08:48)
[2021-03-05] MEDS ORDERED: PETROLATUM WHITE EX (08:48)
[2021-03-05] MEDS ORDERED: PREDNISONE20 MG PO (10:58)
[2021-03-05 11:08] VITALS: BP 152/69
== END 2021-03-05 11:07 | disposition home or self-care (01) ==
LOC: ED 08:15
DX: L27.0 Generalized skin eruption due to drugs and medicaments taken internally (principal); T45.1X5A Adverse effect of antineoplastic and immunosuppressive drugs, initial encounter; C44.309 Unspecified malignant neoplasm of skin of other parts of face; E11.22 Type 2 diabetes mellitus with diabetic chronic kidney disease; I12.9 Hypertensive chronic kidney disease with stage 1 through stage 4 chronic kidney disease, or unspecified chronic kidney disease; N18.30 Chronic kidney disease, stage 3 unspecified; I25.10 Atherosclerotic heart disease of native coronary artery without angina pectoris; Z79.4 Long term (current) use of insulin; Z95.5 Presence of coronary angioplasty implant and graft; Z98.84 Bariatric surgery status

== ENCOUNTER 2021-08-15 06:39 | Day surgery (SDC) | payer MEDICARE, OTHER ==
[~2021-08-15 06:39] MED LIST changes: +EMLA CREAM5 GM/TUBE EX; +PETROLATUM WHITE EX; +PREDNISONE20 MG PO
[2021-08-15] MEDS ORDERED: TRAMADOL HYDROC50 M1 PO (09:13)
[2021-08-15 10:05] VITALS: BP 153/73
== END 2021-08-15 10:36 | disposition home or self-care (01) ==
LOC: ORM 06:39
PROVIDERS: ATTEND Surgery
PROC: 0FT44ZZ Resection of Gallbladder, Percutaneous Endoscopic Approach (ICD-10-PCS; principal; 2021-08-15)
DX: K80.10 Calculus of gallbladder with chronic cholecystitis without obstruction (principal); E11.22 Type 2 diabetes mellitus with diabetic chronic kidney disease; N18.30 Chronic kidney disease, stage 3 unspecified; E66.01 Morbid (severe) obesity due to excess calories; Z79.4 Long term (current) use of insulin; Z95.5 Presence of coronary angioplasty implant and graft
CPT/HCPCS: J0131

== ENCOUNTER 2022-06-20 16:28 | Observation (INO) | payer MEDICARE, OTHER ==
[2022-06-20] VITALS (12 sets, daily range): BP systolic 130–166; BP diastolic 63–91
[~2022-06-20] VITALS: Ht 160 cm; Wt 91.2 kg
[~2022-06-20 16:28] MED LIST changes: +TRAMADOL HYDROC50 M1 PO
--- NOTE | 2022-06-20 19:00 | NUR ---
PT TO ROOM 9
[2022-06-20] MEDS ORDERED: OXYBUTYNIN CHLOR5 M1 PO (21:48)
--- NOTE | 2022-06-20 21:53 | NUR ---
PATIENT ADMITTED TO ROOM 265 VIA . TRANSFERRED SELF INTO BATHROOM AND THEN AMBULATED TO BED. STEADY ON FEET. ALERT AND ORIENTED. ABLE TO MAKE NEEDS KNOWN. ISOLATION PRECAUTIONS DUE TO ESBL IN URINE. PATIENT EDUCATED ON ISOLATION PRECAUTIONS. ASSESSMENT COMPLETE. NO SIGNS OF DISTRESS. NO COMPLAINTS AT THIS TIME. PATIENT DENIES ANY PAIN DURING URINATION. PATIENT ORIENTED TO ROOM, CALL LIGHT AND SURROUNDINGS. BED REMAINS IN LOW POSITION. CALL BUTLER IN REACH. PATIENT DID REFUSE NICK HOSE AND SOCKS. GOWN IS ON PATIENT. FRESH WATER AT BEDSIDE. PATIENT ALSO RECEIVED A SNACK AND DRINK.
--- NOTE | 2022-06-20 22:01 | NUR ---
REPORT GIVEN TO AVA TAO. PT IN NAD, A&OX4, UPDATED ON PLAN OF CARE. PT'S FAMILY ALSO UPDATED ON PLAN OF CARE.
--- NOTE | 2022-06-20 23:08 | NUR ---
CALLED [employer]RA[employer] ARCHITECT MD ON CLARIFICATION ORDER FOR RUFINO. FAXED TO [facility].
[2022-06-21] VITALS (7 sets, daily range): BP systolic 130–171; BP diastolic 47–82
--- NOTE | 2022-06-21 04:37 | NUR ---
PATIENT RESTING IN BED ON HER SIDE. NO COMPLAINTS VOICED. NO SIGNS OF DISTRESS. AMBULATES TO BATHROOM BY HERSELF WHEN NEEDED. STEADY ON HER FEET. BED REMAINS IN LOW POSITION. CALL [facility] AND BELONGINGS IN REACH.
[2022-06-21 06:12] LABS: HEMATOCRIT 32.5 % (37.0-47.0); HEMOGLOBIN 10.6 g/dl (12.0-16.0); IMMATURE GRANULOCYTES 0.3 % (0.0-5.0); MEAN CELL VOLUME 94.2 fL CALC (80.0-100.0); MEAN CORPUSCULAR HGB 30.7 pG CALC (26.0-32.0); MEAN CORPUSCULAR HGB CONC 32.6 g/dL CAL (32.0-36.0); NEUT# 10.9 thou/uL (2.00-7.15); RED BLOOD COUNT 3.45 mill/uL (4.20-5.60); RED CELL DISTRI WIDTH 15.2 % (11.5-15.5)
[2022-06-21 06:15] LABS: ALBUMIN 3.5 g/dL (3.2-5.0); BILIRUBIN, TOTAL 0.4 mg/dL (0.0-1.4); CREATININE 1.3 mg/dL (0.5-1.0); MAGNESIUM 1.5 mg/dL (1.6-2.3); TOTAL PROTEIN 6.1 g/dL (6.3-8.2)
--- NOTE | 2022-06-21 08:22 | NUR ---
0700 BEDSIDE REPORT RECEIVED FROM AISLINN GARZA. PT RESTING IN BED WITH EYES CLOSED, PT EASILY AROUSED WHEN CALLED BY NAME. RESPIRATIONS EVEN AND UNLABORED. NO SIGNS OF DISTRESS NOTED. PT UPDATED ON POC, VERBALIZES UNDERSTANDING AND WILL REINFORCE IF NEEDED. ALL PERSONAL ITEMS WITHIN REACH. SAFETY PRECAUTIONS IN PLACE.
[2022-06-22 03:45] VITALS: BP 153/66
[2022-06-22 04:00] VITALS: BP 153/66
[2022-06-22 06:13] LABS: HEMATOCRIT 32.2 % (37.0-47.0); HEMOGLOBIN 10.5 g/dl (12.0-16.0); IMMATURE GRANULOCYTES 0.2 % (0.0-5.0); MEAN CORPUSCULAR HGB CONC 32.6 g/dL CAL (32.0-36.0); NEUT# 6.13 thou/uL (2.00-7.15); RED BLOOD COUNT 3.39 mill/uL (4.20-5.60); RED CELL DISTRI WIDTH 15.6 % (11.5-15.5)
[2022-06-22 06:20] LABS: ALBUMIN 3.2 g/dL (3.2-5.0); BILIRUBIN, TOTAL 0.5 mg/dL (0.0-1.4); CREATININE 1.4 mg/dL (0.5-1.0); POTASSIUM 4.5 mmol/l (3.5-5.1); TOTAL PROTEIN 5.5 g/dL (6.3-8.2)
[2022-06-22 06:30] VITALS: BP 136/57
[2022-06-22 06:30] LABS: MAGNESIUM 1.9 mg/dL (1.6-2.3)
--- NOTE | 2022-06-22 06:30 | NUR ---
PT IV SITE LEAKING AND 20G IV REMOVED. sEVERAL ATTEMPTS TO REPLACE AND UNSUCCESSFUL. WILL CONTINUE TO OBSERVE AND PASS ON IN REPORT TO ONCOMING NURSE. PT UP TO TOILET WITH NO COMPLICATION. CONTINUES ON iv ABT THERAPY WITH NO COMPLICATIONS . wILL CONTINUE TO BSERVE
--- NOTE | 2022-06-22 07:40 | NUR ---
GOT REPORT FROM OFFSET DUPLICATING MACHINE OPERATOR NURSE AT BEDSIDE. PATIENT IS SLEEPING. WOKE PATIENT AND INFORMED PATINT THAT I WILL BE NURSE TAKING OVER. PATIENT DENIES ANY DISTRESS OR DISCOMFORT. PATIENT HAS NO IV ACCESS. PATIENT STATES THAT THE NIGHT NURSES TRIED SEVERAL TIMES TO PLACE IV BUT WAS UNSUCCESSFUL. PATIENT STATES THAT SHE DOES NOT WANT ONE BECAUSE SHE STATES THAT THE MD TOLD HER YESTERDAY THAT SHE WILL BE GOING HOME TODAY. I INFORMED HER THAT I WILL LET MD KNOW AND SEE WHAT HE SAYS. FALL PRECAUTIONS IN PLACE. CALL LIGHT AND BEDSIDE TABLE WITHIN REACH. ADVISED TO CALL IF PATIENT NEEDED ANYTHING. PATIENT VERBALIZED UNDERSTANDING.
[2022-06-22 08:32] VITALS: BP 136/57
[2022-06-22] MEDS ORDERED: ERTAPENEM1 GM IM (11:03)
--- NOTE | 2022-06-22 12:00 | NUR ---
PATIENT IS IN BED WATCHING TV EATING LUNCH WITH SPOUSE AT BED SIDE. SAID WHEN SHE FINISHES SHE WANTS TO BE DISCHARGED. PATIENT ALREADY HAS D/C ORDERS. WILL AWAIT FOR HER TO FINISH LUNCH TO DISCHARGE HER.
--- NOTE | 2022-06-22 13:00 | NUR ---
Discharge instructions given. Patient verbalizes understanding of same. Discharged in stable condition via Wheelchair to Home with family. All belongings sent with pt.
== END 2022-06-22 13:00 | disposition home or self-care (01) ==
LOC: ED 16:28 → ED-I 19:50 → ED 20:04 → MS2 20:05
PROVIDERS: Nurse Practitioner Family; ADMIT Internal Medicine; ATTEND Internal Medicine
DX: N12 Tubulo-interstitial nephritis, not specified as acute or chronic (principal); E11.22 Type 2 diabetes mellitus with diabetic chronic kidney disease; N18.30 Chronic kidney disease, stage 3 unspecified; I10 Essential (primary) hypertension; I25.10 Atherosclerotic heart disease of native coronary artery without angina pectoris; E66.01 Morbid (severe) obesity due to excess calories; E78.5 Hyperlipidemia, unspecified; M19.90 Unspecified osteoarthritis, unspecified site; M10.9 Gout, unspecified; E03.9 Hypothyroidism, unspecified; I45.6 Pre-excitation syndrome; B96.20 Unspecified Escherichia coli [E. coli] as the cause of diseases classified elsewhere; Z16.12 Extended spectrum beta lactamase (ESBL) resistance; Z85.3 Personal history of malignant neoplasm of breast; Z85.828 Personal history of other malignant neoplasm of skin; Z95.5 Presence of coronary angioplasty implant and graft; Z87.440 Personal history of urinary (tract) infections; Z79.4 Long term (current) use of insulin; Z79.02 Long term (current) use of antithrombotics/antiplatelets; Z98.84 Bariatric surgery status; Z87.891 Personal history of nicotine dependence; Z20.822 Contact with and (suspected) exposure to COVID-19
CPT/HCPCS: J1335; J1650; J3475

== ENCOUNTER 2022-06-27 20:42 | Observation (INO) | payer MEDICARE, OTHER ==
[2022-06-27] VITALS (10 sets, daily range): BP systolic 152–200; BP diastolic 77–103
[~2022-06-27] VITALS: Ht 160 cm; Wt 88.1 kg
[~2022-06-27 20:42] MED LIST changes: +ERTAPENEM1 GM IM; +OXYBUTYNIN CHLOR5 M1 PO
--- NOTE | 2022-06-27 21:26 | NUR ---
PATIENT TAKEN VIA WHEELCHAIR TO ROOM 6 WITH SPOUSE AT BEDSIDE.
[2022-06-27 23:05] LABS: BASO% 0.7 % (0-3); EOS% 5.2 % (0-8); HEMATOCRIT 34.1 % (37.0-47.0); IMMATURE GRANULOCYTES 0.3 % (0.0-5.0); LYMPH% 19.8 % (15-41); MEAN CELL VOLUME 93.7 fL CALC (80.0-100.0); MEAN CORPUSCULAR HGB 30.2 pG CALC (26.0-32.0); MEAN CORPUSCULAR HGB CONC 32.3 g/dL CAL (32.0-36.0); MONO% 6.9 % (2-13); NEUT# 7.4 thou/uL (2.00-7.15); NEUT% 67.1 % (42-76); RED BLOOD COUNT 3.64 mill/uL (4.20-5.60); RED CELL DISTRI WIDTH 14.8 % (11.5-15.5)
[2022-06-27 23:15] LABS: URINE BILIRUBIN - DIPSTICK NEGATIVE (NEGATIVE); URINE COLOR YELLOW; URINE GLUCOSE - DIPSTICK 250 mg/dL (NEGATIVE); URINE KETONE NEGATIVE (NEGATIVE); URINE PROTEIN - DIPSTICK TRACE mg/dL (NEG-TRACE); URINE SPECIFIC GRAVITY 1.025; URINE UROBILINOGEN - DIPSTICK 0.2 E.U./dL (0.2)
[2022-06-27 23:28] LABS: URINE LEUK ESTERASE SMALL (NEGATIVE); URINE NITRITE - DIPSTICK NEGATIVE (Negative)
[2022-06-27 23:29] LABS: ALBUMIN 3.6 g/dL (3.2-5.0); ALKALINE PHOSPHATASE 120 u/l (38-126); ANION GAP 10 (6-22 (CALC)); BUN 23 mg/dL (8-23); BUN/CREATININE RATIO 18 (12-20 (CALC)); CARBON DIOXIDE 27 mmol/l (22-30); CHLORIDE 108 mmol/l (95-108); CREATININE 1.3 mg/dL (0.5-1.0); GFR FOR AFR.AMER. 49 ML/MIN (>=60 (CALC)); GFR OTHER RACES 40 ML/MIN (>=60 (CALC)); POTASSIUM 5.1 mmol/l (3.5-5.1); SGOT/AST 29 u/l (9-36); SODIUM 140 mmol/l (137-146); TOTAL PROTEIN 6.5 g/dL (6.3-8.2)
[2022-06-27 23:32] LABS: URINE BLOOD DIPSTICK NEGATIVE (NEGATIVE); URINE EPITHELIAL CELLS FEW EPI/hpf (0-FEW); URINE WBC 20-50 WBC/hpf (0-5)
[2022-06-27 23:33] LABS: URINE BACTERIA MODERATE hpf; URINE YEAST MODERATE hpf
[2022-06-27 23:34] LABS: BILIRUBIN, TOTAL 0.2 mg/dL (0.0-1.4)
--- NOTE | 2022-06-27 23:40 | NUR ---
PT RESTING ON STRETCHER. NO DISTRESS. AWAITING RESULTS
[2022-06-27 23:43] LABS: PROTHROMBIN TIME 9.6 SECONDS (9.0-12.5)
[2022-06-28] VITALS (39 sets, daily range): BP systolic 103–192; BP diastolic 46–94
--- NOTE | 2022-06-28 00:20 | NUR ---
PT AND AT BEDSIDE DISAGREES WITH PLAN FOR ADMISSION. PT AND EXPLAINS THAT THEY PRFER TO GO HOME AND FOLLOW UP WITH DR. ALBERTO IN THE MORNING. ED PHYSICIAN NOTIFIED.
--- NOTE | 2022-06-28 00:38 | NUR ---
ED PHYSICIAN AT BEDSIDE. PT AND NOW AGREES TO PLAN FOR ADMISSION AND NO LONGER REFUSES IV START AND IV ANTIBIOTICS.
--- NOTE | 2022-06-28 00:50 | NUR ---
UNSUCCESSFUL ATTEMPT FOR IV START - 20G RAC.
--- NOTE | 2022-06-28 01:22 | NUR ---
NURSING RN PALLIATIVE CARE, SAMUEL, AT BEDSIDE TO START AN IV...WHEN PT HAD A SEIZURE. CEASED ON IT OWN. WAS [place] TO BEDSIDE. NANCY ORDERED. SAT DECREASED TO 75...PLACED ON N.C. AT 4 LPM.
--- NOTE | 2022-06-28 01:24 | NUR ---
RTAME, NOTIFIED THIS NURSE THAT PATIENT IS HAVING A SEIZURE. [facility], SAMUEL, AND CHARGE NURSE, KARY, AT BEDSIDE. NO SEIZURE ACTIVITY AT THIS TIME. PT APPEARS POST ICTAL. MOUTH SUCTIONED OF FROATHY SECREATIONS. PT OPENS EYES TO TACTILE STIMULATION.
--- NOTE | 2022-06-28 01:55 | NUR ---
PT GETTING COMBATIVE.... NOTIFIED. 1 MG OF VERSED GIVEN.
--- NOTE | 2022-06-28 02:05 | NUR ---
PREPARING TO TAKE TO CT. PT GETTING RESTLESS AND FIGHTING WITH STAFF. DR NOTIFIED. PT GIVEN 1 MG OF VERSED. PT CALMING. WILL TAKE [address] WITH PT TO ASSIST WITH SCAN.
--- NOTE | 2022-06-28 02:08 | NUR ---
PT IN CT..RESTLESS. PT GIVEN VERSED 4 MG IVP TO SCAN. PT ON O2 VIA MASK.
--- NOTE | 2022-06-28 03:20 | NUR ---
PATIENT RESTING WITH EYES CLOSED. REMAINS POST ICTAL. AROUSES TO TACTILE STIMULATION. AWAITING IMAGING RESULTS
--- NOTE | 2022-06-28 03:50 | NUR ---
AWAITING CT SCAN RESULTS BEFORE TRANSPORT TO FLOOR. POSSIBLE CHANGE OF DISPOSITION DEPENDING ON RESULTS
--- NOTE | 2022-06-28 04:15 | NUR ---
PT AWAKE. UPDATED THAT SHE HAD A SEIZURE. PT DENIES PREVIOUS SEIZURE ACTIVITY. NO DISTRESS. VSS.
--- NOTE | 2022-06-28 04:20 | NUR ---
Admission Note Report Given to: AISLINN ROSADO Transported by: Wheelchair X Stretcher Transported with: X Nurse Transporter X Patent IV X O2 X Roll Forming Machine Set Up Operator Location: X ICU [facility]
--- NOTE | 2022-06-28 04:50 | NUR ---
pt arrived to the ICU @0450 report given at bed side, pt confused, complain of a headache, pads in place for seizure precaution, bed in low position, and alarms on, 4L NS lungs sound dimished thruout, will continute to monitor.
--- NOTE | 2022-06-28 06:20 | NUR ---
CALL PLACED TO PATIENT'S SHE PREVIOUSLY REQUESTED. UPDATED THAT HIS HAD A SEIZURE LAST NIGHT AND HAS BEEN ADMITTED TO THE ICU.
--- NOTE | 2022-06-28 08:00 | NUR ---
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
--- NOTE | 2022-06-28 10:00 | NUR ---
SPEECH CONSULT PLACED, NO CHANGE IN PT STATUS
--- NOTE | 2022-06-28 10:58 | NUR ---
O2 SAT 99% ON 3L NC
--- NOTE | 2022-06-28 12:00 | NUR ---
PT GETTING READY TO GO DOWN TO MRI
--- NOTE | 2022-06-28 14:00 | NUR ---
PT IN BED SLEEPING, NO CHANGE IN PT STATUS
--- NOTE | 2022-06-28 16:36 | NUR ---
GAVE REPORT TO LE[facility] DURAN GOING TO [facility]
--- NOTE | 2022-06-28 18:52 | NUR ---
REPORT RECEIVED FROM DAY IN ICU, PT ARRIVED ON UNIT @ 1703 TRANSPORTED VIA BED AND TRANSFERRED TO BED IN ROOM 279. ALERT AND ORIENTED X 2, DENIES PAIN/DISCOMFORT, ORIENTED TO ROOM AND CALL BUTLER, BED ALARM ACTIVATED, BED LOCKED IN LOWEST POSITION AND CALL BUTLER IN REACH.
--- NOTE | 2022-06-29 00:13 | NUR ---
PATIENT ALERT AND ORIENTED TO SELF AND PLACE, ABLE TO MAKE NEEDS KNOWN. PATIENT GIVEN EVENING MEDICATIONS WITHOUT ANY ISSUES. TELEMETRY IN PLACE, PATIENT USING O2 AT 2L NC. PATIENT UP TO BSC WITH ASSISTANCE. SAFETY PRECAUTIONS IN PLACE, BED ALARM PRESENT.
[2022-06-29 03:43] VITALS: BP 141/59
[2022-06-29 05:59] LABS: HEMATOCRIT 35.2 % (37.0-47.0); MEAN CELL VOLUME 99.2 fL CALC (80.0-100.0); MEAN CORPUSCULAR HGB CONC 31.3 g/dL CAL (32.0-36.0); RED BLOOD COUNT 3.55 mill/uL (4.20-5.60); RED CELL DISTRI WIDTH 14.8 % (11.5-15.5)
[2022-06-29 07:26] VITALS: BP 142/52
[2022-06-29 08:23] LABS: CREATININE 1.2 mg/dL (0.5-1.0); MAGNESIUM 1.8 mg/dL (1.6-2.3); POTASSIUM 5.1 mmol/l (3.5-5.1)
[2022-06-29 11:00] VITALS: BP 110/53
[2022-06-29] MEDS ORDERED: LEVETIRACETAM500 MG PO (13:01)
== END 2022-06-29 14:20 | disposition home or self-care (01) ==
LOC: ED 20:42 → ED-I 06-28 00:05 → ED 06-28 00:15 → ICU 06-28 00:16 → MS2 06-28 00:16 → ICU 06-28 04:00 → MS2 06-28 16:45
PROVIDERS: Emergency Medicine; Internal Medicine; ADMIT Internal Medicine; ATTEND Internal Medicine
DX: R56.9 Unspecified convulsions (principal); N39.0 Urinary tract infection, site not specified; E11.22 Type 2 diabetes mellitus with diabetic chronic kidney disease; N18.30 Chronic kidney disease, stage 3 unspecified; I10 Essential (primary) hypertension; I25.10 Atherosclerotic heart disease of native coronary artery without angina pectoris; E78.5 Hyperlipidemia, unspecified; E03.9 Hypothyroidism, unspecified; G51.0 Bell's palsy; I45.6 Pre-excitation syndrome; E66.01 Morbid (severe) obesity due to excess calories; Z85.3 Personal history of malignant neoplasm of breast; Z87.440 Personal history of urinary (tract) infections; Z98.84 Bariatric surgery status; Z79.4 Long term (current) use of insulin; Z95.5 Presence of coronary angioplasty implant and graft; R26.81 Unsteadiness on feet; R41.82 Altered mental status, unspecified; R53.1 Weakness; Z16.12 Extended spectrum beta lactamase (ESBL) resistance
CPT/HCPCS: J1335; J1650; J1953

== ENCOUNTER 2022-10-14 19:33 | Emergency (ER) | payer MEDICARE, OTHER ==
[2022-10-14] VITALS (10 sets, daily range): BP systolic 129–171; BP diastolic 58–101
[~2022-10-14] VITALS: Ht 160 cm; Wt 84.0 kg
[~2022-10-14 19:33] MED LIST changes: +LEVETIRACETAM500 MG PO
[2022-10-14 20:49] LABS: EOS% 5.2 % (0-8); HEMATOCRIT 36.3 % (37.0-47.0); HEMOGLOBIN 11.3 g/dl (12.0-16.0); IMMATURE GRANULOCYTES 0.2 % (0.0-5.0); MEAN CELL VOLUME 92.4 fL CALC (80.0-100.0); MEAN CORPUSCULAR HGB 28.8 pG CALC (26.0-32.0); MEAN CORPUSCULAR HGB CONC 31.1 g/dL CAL (32.0-36.0); MONO% 8.1 % (2-13); NEUT# 5.9 thou/uL (2.00-7.15); NEUT% 61.5 % (42-76); RED BLOOD COUNT 3.93 mill/uL (4.20-5.60); RED CELL DISTRI WIDTH 14.9 % (11.5-15.5)
[2022-10-14 20:59] LABS: URINE BILIRUBIN - DIPSTICK NEGATIVE (NEGATIVE); URINE BLOOD DIPSTICK NEGATIVE (NEGATIVE); URINE COLOR YELLOW; URINE GLUCOSE - DIPSTICK NEGATIVE (NEGATIVE); URINE KETONE NEGATIVE (NEGATIVE); URINE LEUK ESTERASE TRACE (NEGATIVE); URINE NITRITE - DIPSTICK NEGATIVE (Negative); URINE PH 5.5 (4.5-8.0); URINE PROTEIN - DIPSTICK NEGATIVE (NEG-TRACE); URINE UROBILINOGEN - DIPSTICK 0.2 E.U./dL (0.2)
[2022-10-14 21:04] LABS: ALBUMIN 3.9 g/dL (3.2-5.0); BILIRUBIN, TOTAL 0.3 mg/dL (0.02-1.3); CREATININE 1.6 mg/dL (0.5-1.0); MAGNESIUM 1.8 mg/dL (1.6-2.3); POTASSIUM 4.5 mmol/l (3.5-5.1); TOTAL PROTEIN 6.6 g/dL (6.3-8.2)
[2022-10-14 21:35] LABS: TSH, 3RD GENERATION 0.2 uIU/mL (0.47 - 4.68)
[2022-10-14] MEDS ORDERED: PROMETHAZINE HY25 M1 PO (22:19)
== END 2022-10-14 21:30 | disposition home or self-care (01) ==
LOC: ED 19:33
PROVIDERS: Family Medicine
DX: N39.0 Urinary tract infection, site not specified (principal); R11.2 Nausea with vomiting, unspecified; E11.22 Type 2 diabetes mellitus with diabetic chronic kidney disease; N18.30 Chronic kidney disease, stage 3 unspecified; E66.01 Morbid (severe) obesity due to excess calories; Z79.4 Long term (current) use of insulin; Z20.822 Contact with and (suspected) exposure to COVID-19